=== PATIENT | male | born 1965 | race Caucasian/White ===

== ENCOUNTER 2018-03-25 10:45 | Inpatient (IN) ==
[2018-03-25] MEDS ORDERED: niCARdipine Inj 25 MG in Sodium Chlor 0.9% Inj 240 ML IV.CONT PRN (10:55)
--- NOTE | 2018-03-25 10:55 | ED ---
HPI General Chief Complaint: Neuro Symptoms/Deficit Stated Complaint: neuro symptoms Time Seen by Provider: 03/25/18 11:04 Source: EMS Mode of arrival: EMS Limitations: no limitations History of Present Illness Onset (ago): minute(s) (50) Last Observed Normal: 10:00 Location: Reports speech, dysarthria and left arm History of same: No Severity: mild Quality: Reports weak Relieving factors: none Exacerbating factors: none Context: Reports sudden onset On Anticoagulants: No Associated symptoms: Reports denies other symptoms; Denies chest pain, fever/ chills, headaches, nausea/vomiting, seizures and shortness of breath Treatments Prior to Arrival: Reports none Related Data Home Medications Medication Instructions Recorded Confirmed insulin detemir U-100 [Levemir 20 unit SUBCUT QPM 03/25/18 03/25/18 U-100 Insulin] losartan 100 mg PO DAILY 03/25/18 03/25/18 metoclopramide HCl 10 mg PO Q6H 03/25/18 03/25/18 minoxidil 10 mg PO BID 03/25/18 03/25/18 naproxen sodium [Aleve] 440 mg PO BID 03/25/18 03/25/18 sertraline 100 mg PO DAILY 03/25/18 03/25/18 sevelamer carbonate [Renvela] 3,200 mg PO TID 03/25/18 03/25/18 Allergies Allergy/AdvReac Type Severity Reaction Status Date / Time diatrizoate meglumine AdvReac Mild NAUSEA/VOMI Verified 03/25/18 11:28 TING gadobenic acid AdvReac Mild NAUSEA/VOMI Verified 03/25/18 11:28 TING gadodiamide AdvReac Mild NAUSEA/VOMI Verified 03/25/18 11:28 TING iodixanol AdvReac Mild NAUSEA/VOMI Verified 03/25/18 11:28 TING iohexol AdvReac Mild NAUSEA/VOMI Verified 03/25/18 11:28 TING Review of Systems ROS: all other systems reviewed are negative [facility] Medical History Medical History Melanoma (Chronic) Depression (Chronic) Diabetes (Chronic) ESRD (end stage renal disease) (Chronic) Hypertension (Chronic) Surgical History Surgical History H/O foot surgery (Acute) Hx of neck surgery (Acute) Hx of tonsillectomy (Acute) Social History Social History Substance History: No History of Abuse Second Hand Smoke Exposure: No Smoking Status: Never smoker How Often Do You Have a Drink Containing Alcohol: Never Recent Travel in [facility] within the Last 8 Weeks: No Recent Out of Country Travel within the Last 8 Weeks: No Exam Const General: cooperative, healthy appearing and comfortable Orientation: alert, awake and oriented x3 HENMT Head: normal to inspection, normocephalic and atraumatic Eyes Alignment and Position: alignment normal Conjunctivae: conjunctivae normal Sclera: sclerae normal EOM: EOM intact bilaterally Neck Neck: normal visual inspection, no lymphadenopathy and no meningeal signs Chest Chest: normal inspection of the chest Resp Effort & Inspection: normal respiratory effort and able to speak in complete sentences Auscultation: clear to auscultation bilaterally Cardio Rate: regular rate Rhythm: regular rhythm Back/Spine/Pelvis Cervical Spine: cervical ROM normal Thoracic/Lumbar Spine: thoraco-lumbar ROM normal Skin General: no rashes or lesions noted, turgor normal and dry skin Neuro General: alert, awake, oriented x3 and moves all extremities Cranial Nerves: PERRL, EOM intact bilaterally, no nystagmus, facial strength normal and other (tongue deviates very slightly to the left) Cognition: abnormal cognition (seems just a little confused) Speech: speech normal Motor: movement abnormality noted myoclonus (jerks about every 30 seconds) Extrem General: normal to inspection and full ROM Psych Appearance: grossly normal Mental Status: mental status grossly normal Speech and Movement: speech and movement normal Mood: congruent mood Affect: normal affect Attitude: cooperative Thought Process: normal Thought Content: normal Judgment: judgment good Course Consultations Consultation #1: Dr. Salas, neurology Time: 10:55 Consultation #2: Dr. Rosenbaum, radiology Time: 11:00 Consultation #3: Dr. Fisher, nephrology Time: 12:15 Additional Consultation(s): Dr. Fung, nephrology at 12:19 Dr. Walker, hospitalist at 12:25 Initial Documented Vital Signs Temperature 97.5 F L 03/25/18 11:00 Pulse Rate 90 03/25/18 11:00 Respiratory Rate 18 03/25/18 11:00 Blood Pressure 237/119 H 03/25/18 11:00 Pulse Oximetry 94 L 03/25/18 11:00 Last Documented Vital Signs Temperature 97.5 F L 03/25/18 11:00 Pulse Rate 67 03/25/18 11:56 Respiratory Rate 18 03/25/18 11:56 Blood Pressure 229/77 H 03/25/18 11:56 Pulse Oximetry 97 03/25/18 11:56 Critical Care Time Critical Care Time: Yes Total Critical Care Time: 60 Attestation: Time to perform other separately billable procedures was not included in the critical care time. My time did not include minutes spent treating any other patients simultaneously or on activities that did not directly contribute to the patient's treatment. The services I provided to this patient were to treat and/or prevent clinically significant deterioration due to acute neurological event I provided critical care services requiring my management, as noted below: Chart data review, documentation time, medication orders and management, vital sign assessments/reviewing monitor data, ordering and reviewing lab tests, ordering and interpreting/reviewing x-rays and diagnostic studies, care of the patient and discussion of the patient with the admitting physicians NIH Stroke Scale NIHSS Time Completed NIHSS Time Completed: 10:54 NIH Stroke Scale Level of Consciousness: 0-Alert Orientation Questions: 0-Answers both correct Responds to Commands: 0-Both tasks correct Gaze Eye Movement: 0-Horizontal movement WNL Visual Haji: 0-No visual field defect Facial Movement: 1-Minor facial palsy Motor Functions Arm LEFT: 1-Drift before 10 seconds Motor Functions Arm RIGHT: 0-No drift Motor Functions Leg LEFT: 0-No drift Motor Functions Leg RIGHT: 0-No drift Limb Ataxia: 0-No ataxia Sensory Loss: 0-No sensory loss Best Language: 1-Mild aphasia Articulation: 1-Mild dysarthia Extinction or Inattention Sensory: 0-Absent Total: 4 Medical Decision Making MDM Narrative Medical decision making narrative: This patient presents to us by [facility] following the acute onset of neurological symptoms. Onset was 10 AM. He was initially reported to have right-sided facial droop and slurred speech. He was also noted to have intermittent jerking. No previous similar history. Pertinent medical history is end-stage renal disease on dialysis. He is due to dialyze today. He also has hypertension and diabetes. To my exam, his facial strength is normal. His tongue does deviate very slightly to the left. He has very mildly decreased muscle strength in the left upper extremity. Dr. Salas was consulted emergently. He has examined the patient via telemedicine. The patient's symptoms seem to be improving. Dr. Salas does not recommend TPA. He does recommend aspirin which has been ordered. He also recommends permissive hypertension but would like to see the patient's diastolic blood pressure around 100. He recommends the use of IV Lopressor for blood pressure control. This has been ordered. Finally, he recommends the following studies: MRI/MRA of the brain, carotid ultrasound, echo, lipid panel. All of the studies have also been ordered. After seeing his potassium, I have ordered insulin/D50, sodium bicarb, calcium gluconate and Kayexalate. I have asked the charge nurse to contact his foot cutter, Dr. Fisher. Arrangements will be made by nephrology for dialysis. The patient is being admitted to [facility]. Medical Screen Exam Complete: Yes Emergency Medical Condition: Yes Differential Diagnosis Differential Diagnosis: Differential diagnosis includes but is not limited to TIA, CVA, brain tumor, migraine, anxiety Lab Data Lab results reviewed: Yes I reviewed the patient's lab results. Result diagrams: 03/25/18 11:15 03/25/18 11:15 Lab Results 03/25/18 03/25/18 03/25/18 Range/Units 11:15 11:15 11:15 CBC w Diff Auto diff final WBC 11.1 H (4.0-11.0) th/mm3 RBC 4.26 L (4.50-5.90) mil/mm3 Hgb 13.0 (13.0-17.0) gm/dL Hct 40.0 (39.0-51.0) % MCV 93.9 (80.0-100.0) fL MCH 30.5 (27.0-34.0) pg MCHC 32.5 (32.0-36.0) % RDW 13.6 (11.6-17.2) % Plt Count 238 (150-450) th/mm3 MPV 8.5 (7.0-11.0) fL Neut % (Auto) 70.1 H (16.0-70.0) % Lymph % (Auto) 13.8 (9.0-44.0) % Leslie % (Auto) 8.8 H (0.0-8.0) % Eos % (Auto) 6.3 H (0.0-4.0) % Baso % (Auto) 1.0 (0.0-2.0) % Neut # (Auto) 7.8 H (1.8-7.7) th/mm3 Lymph # (Auto) 1.5 (1.0-4.8) th/mm3 Leslie # (Auto) 1.0 H (0.0-0.9) th/mm3 Eos # (Auto) 0.7 H (0.0-0.4) th/mm3 Baso # (Auto) 0.1 (0.0-0.2) th/mm3 WBC Differential . Differential Comment . PT 11.4 (9.8-11.6) sec INR 1.1 Ratio APTT 31.8 H (23.4-31.7) sec Sodium 137 (136-145) meq/L Potassium 6.3 H (3.5-5.1) meq/L Chloride 99 (98-107) meq/L Carbon Dioxide 24.2 (21.0-32.0) meq/L Anion Gap 14 (5-15) meq/L BUN 83 H (7-18) mg/dL Creatinine 7.30 H (0.60-1.30) mg/dL Estimated GFR 8 L (>89) mL/min Random Glucose 109 H (74-106) mg/dL Calcium 9.2 (8.5-10.1) mg/dL Total Creatine Kinase 151 (39-308) U/L CK-MB (CK-2) 5.2 H (0.5-3.6) ng/mL Troponin I 0.15 H (0.02-0.05) ng/mL Imaging Data Radiologist's impression: Chest X-Ray 03/25/18 10:51 CONCLUSION: No acute pulmonary infiltrates. Head CT 03/25/18 10:51 CONCLUSION: 1. No acute intracranial hemorrhage. 2. Bilateral small old appearing lacunar infarcts in the basal ganglia regions. Report was called by [Dr. Rosenbaum to Dr. Vanegas at 11:01 AM. ] ECG Data EKG Prior to Arrival: No Attestation: I personally reviewed and interpreted this ECG as follows: (EKG shows a sinus rhythm. Rate 85. No acute STT wave changes.) Discharge Plan Discharge Disposition Patient Disposition: ED Admit(ED Internal Use Only) Discharge Details Diagnosis: Transient cerebral ischemia, Acute hyperkalemia, Chronic kidney disease with end stage renal failure on dialysis Physicians Team ED Provider: Kaley Vanegas Primary Care Provider: lamberto Fisher Christophe C Rxs /Orders / Referrals /Forms Prescriptions: No Action sertraline 100 mg Tablet 100 mg PO DAILY RF: 0 minoxidil 10 mg Tablet 10 mg PO BID RF: 0 losartan 100 mg Tablet 100 mg PO DAILY RF: 0 metoclopramide HCl 10 mg Tablet 10 mg PO Q6H RF: 0 insulin detemir U-100 [Levemir U-100 Insulin] 100 unit/mL Solution 20 unit SUBCUT QPM RF: 0 sevelamer carbonate [Renvela] 800 mg Tablet 3,200 mg PO TID RF: 0 naproxen sodium [Aleve] 220 mg Capsule 440 mg PO BID RF: 0 Status ED Status: With Doctor
--- NOTE | 2018-03-25 11:06 | CT ---
EXAM DATE: 03/25/2018 11:00 AM EST AGE/SEX: 52 years / Male INDICATIONS: Stroke alert. Right facial drooping and slurred speech. Left deviated tongue. CLINICAL DATA: This is the patient's initial encounter. Patient reports that signs and symptoms have been present for 1 day and indicates a pain score of Nonresponsive. MEDICAL/SURGICAL HISTORY: Non-responsive. . Left jaw surgery. RADIATION DOSE: 60.75 CTDI (mGy) COMPARISON: No prior exams available for comparison. TECHNIQUE: CT of the head without contrast. Using automated exposure control and adjustment of the mA and/or kV according to patient size, radiation dose was kept as low as reasonably achievable to ob tain optimal diagnostic quality images. DICOM format image data is available electronically for revi ew and comparison. FINDINGS: Cerebrum: The ventricles are normal for age. No evidence of midline shift, mass lesion, hemorrhage or acute infarction. No extraaxial fluid collections are seen. Old small bilateral lacunar infarcts in the basal ganglia regions. Posterior Fossa: The cerebellum and brainstem are intact. The 4th ventricle is midline. The cerebe llopontine angle is unremarkable. Extracranial: The visualized portion of the orbits is intact. Skull: The calvaria is intact. No evidence of skull fracture. CONCLUSION: 1. No acute intracranial hemorrhage. 2. Bilateral small old appearing lacunar infarcts in the basal ganglia regions. Report was called by [Dr. Rosenbaum to Dr. Vanegas at 11:01 AM. ] Electronically signed by: Erich Rosenbaum MD Board Certified Radiologist 03/25/2018 11:04 AM EST
[2018-03-25] MEDS ORDERED: Metoprolol Inj 5 MG/5 ML Vial IV.PUSH PRN (11:12)
--- NOTE | 2018-03-25 11:32 | XR ---
EXAM DATE: 03/25/2018 11:29 AM EST AGE/SEX: 52 years / Male INDICATIONS: Stroke Alert CLINICAL DATA: This is the patient's initial encounter. Patient reports that signs and symptoms have been present for 1 day and indicates a pain score of Nonresponsive. MEDICAL/SURGICAL HISTORY: Non-responsive. Non-responsive. COMPARISON: No prior exams available for comparison. FINDINGS: A single AP view of the chest demonstrates the lungs to be symmetrically aerated without evidence of mass, infiltrate or effusion. The cardiomediastinal contours are unremarkable. Osseous structures a re intact. CONCLUSION: No acute pulmonary infiltrates. Electronically signed by: Erich Rosenbaum MD Board Certified Radiologist 03/25/2018 11:30 AM EST
[2018-03-25 11:33] LABS: Chloride 99 meq/L (98-107); Potassium 6.3 meq/L (3.5-5.1); Sodium 137 meq/L (136-145)
[2018-03-25] MEDS: Sod Chloride 0.9% Inj 1,000 ML IV.CONT SCH (11:35)
[2018-03-25 11:36] LABS: Baso # (Auto) 0.1 th/mm3 (0.0-0.2); Calcium 9.2 mg/dL (8.5-10.1); Eos # (Auto) 0.7 th/mm3 (0.0-0.4); Eos % (Auto) 6.3 % (0.0-4.0); Lymph # (Auto) 1.5 th/mm3 (1.0-4.8); Lymph % (Auto) 13.8 % (9.0-44.0); Mean Corpuscular HGB Conc 32.5 % (32.0-36.0); Mean Corpuscular Hemoglobin 30.5 pg (27.0-34.0); Mean Corpuscular Volume 93.9 fL (80.0-100.0); Mean Platelet Volume 8.5 fL (7.0-11.0); Mono % (Auto) 8.8 % (0.0-8.0); Neut # (Auto) 7.8 th/mm3 (1.8-7.7); Neut % (Auto) 70.1 % (16.0-70.0); Platelet Count 238 th/mm3 (150-450); Red Blood Count 4.26 mil/mm3 (4.50-5.90); Red Cell Distribution Width 13.6 % (11.6-17.2); White Blood Count 11.1 th/mm3 (4.0-11.0)
[2018-03-25 11:37] LABS: Anion Gap 14 meq/L (5-15); Blood Urea Nitrogen 83 mg/dL (7-18); Carbon Dioxide 24.2 meq/L (21.0-32.0); Glucose,Random 109 mg/dL (74-106)
[2018-03-25 11:39] LABS: Activated Partial Thrombo Time 31.8 sec (23.4-31.7); INR 1.1 Ratio; Prothrombin Time 11.4 sec (9.8-11.6)
[2018-03-25 11:40] LABS: Glomerular Filtration Rate 8 mL/min (>89)
[2018-03-25 11:43] LABS: Creatine Kinase 151 U/L (39-308)
[2018-03-25 11:44] LABS: Troponin I 0.15 ng/mL (0.02-0.05)
[2018-03-25 11:55] LABS: Creatine Kinase MB 5.2 ng/mL (0.5-3.6)
--- NOTE | 2018-03-25 11:59 | MB ---
cc: Emerson Salas MD, PhD DATE: 03/25/2018 REASON FOR CONSULTATION: Stroke alert. HISTORY OF PRESENT ILLNESS: Mr. Patel is a very pleasant 52-year-old man with end-stage renal disease on dialysis, who was in his usual state of health until 10 a.m. this morning when he suddenly developed slurred speech and right facial droop. He was brought to the ED at [facility] as a stroke alert. I discussed his case with Dr. Vanegas of the ER department. On her evaluation, his facial droop had resolved; however, he still had slurred speech and was noted to have a left tongue deviation with mild left upper extremity weakness. However, at the time of my evaluation via the Telestroke system, his symptoms had virtually resolved. He was noted to have intermittent jerking of his upper and lower extremities as well. NEUROLOGICAL EXAMINATION: VITAL SIGNS: Blood pressure initially 231/119, pulse is 80. HIGHER CORTICAL FUNCTION: The patient is alert, arouses easily. Speech at this time is not dysarthric. It is fluent, back to his normal self. He follows commands well. There is no neglect. On cranial nerve examination, there is no longer a facial droop. Cranial nerves are intact. There is very subtle left tongue deviation, but this is very minimal. On motor examination, he is able to lift both upper extremities for greater than 20 seconds and both lower extremities for greater than 20 seconds. He has normal strength in both arms and both legs. There is no drift. He has a normal sensory exam. There is no limb ataxia. There is no sign of aphasia and no dysarthria. No extinction. The NIH stroke scale at the time of my evaluation is 0. DIAGNOSTIC DATA: CT of the brain without contrast by report is with no acute change present. Serum glucose is within normal limits. IMPRESSION AND PLAN: Suspect that this may have been a posterior circulation, i.e., brainstem, transient ischemia attack given the exam findings in the ER. However, his symptoms have completely resolved at the present time. Therefore, he is not a candidate for IV TPA. We cannot give him contrast for a CT angiogram due to an ALLERGY TO THE CONTRAST DYE as well as his renal failure with resolution of symptoms. I would recommend starting aspirin 325 mg daily. Allow permissive hypertension and treat blood pressure if it got over 210/100. I will order an MRI of the brain without contrast, MRA of the brain without contrast, carotid ultrasound, echocardiogram, and lipid panel. The patient will be evaluated for further evaluation and observation. Thank you for asking me to see this patient in consultation. Emerson Salas MD, PhD CARRIE/kota , 11:37 AM , 11:46 AM
[2018-03-25] MEDS ORDERED: Sodium Polystyrene Sulfonate/Sorbitol Liq 15 GM/60 ML UDC PO ONE (12:04)
[2018-03-25] MEDS ORDERED: Calcium Gluconate Inj 1 GM in Sodium Chlor 0.9% Inj 100 ML IV.SIG ONE (12:04)
--- NOTE | 2018-03-25 12:47 | US ---
EXAM DATE: 03/25/2018 12:41 PM EST AGE/SEX: 52 years / Male INDICATIONS: Right-sided facial droop and slurred speech. CLINICAL DATA: This is the patient's initial encounter. Patient reports that signs and symptoms have been present for 1 day and indicates a pain score of 0/10. MEDICAL/SURGICAL HISTORY: Hypertension. Diabetes. ESRD. Melanoma. Dialysis. . Left neck Melano ma and lymph node removal. COMPARISON: No prior exams available for comparison. VELOCITY PARAMETERS: ICA/CCA Ratio: Right 1.25 , Left 1.46 ICA: Right 77 cm/sec, Left 166 cm/sec CCA: Right 62 cm/sec, Left 114 cm/sec ECA: Right 63 cm/sec, Left 71 cm/sec Vertebral: Right 66 cm/sec antegrade, Left 68 cm/sec antegrade FINDINGS: Right Carotid: Moderate arteriosclerotic plaque is visualized.The waveforms are within normal limits . Left Carotid: There is elevation of the peak systolic velocity of the left ICA suggesting 50-69% kvng nosis although the ICA/CCA ratio is suggestive of less than 50% stenosis. CTA of the carotids may be helpful for further evaluation of these discordant findings. Moderate arteriosclerotic plaque is visu alized. The waveforms are within normal limits. Other: None. CONCLUSION: 1. Elevation of the peak systolic velocity of the left ICA suggesting 50-69% stenosis although the I CA/CCA ratio is suggestive of less than 50% stenosis. CTA of the carotids may be helpful for further evaluation of these discordant findings. 2. No significant stenosis involving the right internal carotid artery. Electronically signed by: Herman Graf MD Board Certified Radiologist 03/25/2018 12:45 PM EST
[2018-03-25] MEDS ORDERED: Labetalol HCl Inj 100 MG/20 ML Vial IV.PUSH PRN (13:13)
[2018-03-25] MEDS ORDERED: Dextrose 50% in Water 50 ML Vial IV.PUSH PRN (13:13)
--- NOTE | 2018-03-25 13:16 | MR ---
EXAM DATE: 03/25/2018 1:12 PM EST AGE/SEX: 52 years / Male INDICATIONS: CVA. CLINICAL DATA: This is the patient's initial encounter. Patient reports that signs and symptoms have been present for 1 day and indicates a pain score of 0/10. MEDICAL/SURGICAL HISTORY: Hypertension. Diabetes mellitus type II. . Melanoma removed and foot surgery. COMPARISON: [facility], MR HEAD W/O CONTRAST, 03/25/2018. [facility], CT HEAD W/O CONTRAST, 03/25/2018. . TECHNIQUE: 3D [id number] MRA was performed. Source images, multiplanar STS MIP, and 3D volum e MIP reconstructions were reviewed. FINDINGS: There is excellent visualization of the major intracranial arteries out to the second-order branch ve ssels. There is no evidence for aneurysm, vessel truncation or stenosis, and no evidence for vascula r malformation. CONCLUSION: 1. Negative MRA Cow ([place]) non contrast. Electronically signed by: Herman Graf MD Board Certified Radiologist 03/25/2018 1:15 PM EST
--- NOTE | 2018-03-25 13:17 | MR ---
EXAM DATE: 03/25/2018 1:12 PM EST AGE/SEX: 52 years / Male INDICATIONS: CVA. CLINICAL DATA: This is the patient's initial encounter. Patient reports that signs and symptoms have been present for 1 day and indicates a pain score of 0/10. MEDICAL/SURGICAL HISTORY: Diabetes mellitus type II. Hypertension. Renal disease, end stage. . Melanoma removed and foot surgery. COMPARISON: [facility], CT HEAD W/O CONTRAST, 03/25/2018. . TECHNIQUE: Multiplanar, multisequence examination of the brain was performed without contrast. FINDINGS: Cerebrum: The ventricles are normal for age. No evidence of midline shift, mass lesion, hemorrhage or acute infarction. No extraaxial fluid collections are seen. The pituitary gland and suprasellar cistern are normal in configuration. There are old small bilateral lacunar infarcts in the basal gang paul regions. White Matter: No significant signal abnormalities are seen in the white matter. Posterior Fossa: The cerebellum and brainstem are intact. The 4th ventricle is midline. The cerebel lopontine angle is unremarkable. The cerebellar tonsils are normal in position. Diffusion Imaging: No focal areas of restricted diffusion are seen. No evidence of acute infarction . Extracranial: The visualized portions of the orbits and paranasal sinuses are unremarkable. Chronic mastoiditis on the left side. CONCLUSION: 1. No acute cerebral infarction. 2. Bilateral old small lacunar infarcts. 3. Chronic left mastoiditis. Electronically signed by: Erich Rosenbaum MD Board Certified Radiologist 03/25/2018 1:16 PM EST
--- NOTE | 2018-03-25 13:23 | P.HPIM ---
History of Present Illness Primary Care Physician: Hardik Bazan Mai, m.d., MD Chief Complaint: slurring of speech and R facial droop History of Present Illness: This is a 52-year-old male with history of end- stage renal disease and he diabetes mellitus, hypertension presenting to the hospital around 10 AM for slurring of speech and right-sided facial droop. Upon ED evaluation, stroke alert was called, neurology saw the patient via telemedicine. Slurring of speech is still present but a little bit better, there is also left tongue deviation. tPA was not given. Presently, patient is feeling better, per patient's mother, his speech is probably back to normal or close if not normal. He has a baseline left-sided facial droop from a previous neck surgery. Patient denies any chest pain or shortness of breath. He has generalized weakness but no change or worsening. Is no history of stroke or kidney problems in the family. There is prominent cardiac history in the family. Patient is non-smoker Inpatient Certification Inpatient Certification: I certify that the inpatient services were ordered in accordance with Medicare regulations governing the order. This includes certification that hospital inpatient services are reasonable and necessary and in the case of services not specified as inpatient-only under 42 CFR 419.22(n), that they are appropriately provided as inpatient services in accordance to with the 2-midnight benchmark under 43 CFR 412.3(e) Estimated Total Length of Stay (Days): 2 Plans for Post Hospital Care: Home health Review of Systems Review of Systems: all other systems reviewed are negative [facility] Medical History Medical History Melanoma (Chronic) Depression (Chronic) Diabetes (Chronic) ESRD (end stage renal disease) (Chronic) Hypertension (Chronic) Surgical History Surgical History H/O foot surgery (Acute) Hx of neck surgery (Acute) Hx of tonsillectomy (Acute) Social History Social History Substance History: No History of Abuse Second Hand Smoke Exposure: No Smoking Status: Never smoker How Often Do You Have a Drink Containing Alcohol: Never Recent Travel in [facility] [[email or web address]] within the Last 8 Weeks: No Recent Out of Country Travel within the Last 8 Weeks: No Immunization History Tetanus Immunization: <5 Years Medications and Allergies Allergies Allergy/AdvReac Type Severity Reaction Status Date / Time diatrizoate meglumine AdvReac Mild NAUSEA/VOMI Verified 03/25/18 11:28 TING gadobenic acid AdvReac Mild NAUSEA/VOMI Verified 03/25/18 11:28 TING gadodiamide AdvReac Mild NAUSEA/VOMI Verified 03/25/18 11:28 TING iodixanol AdvReac Mild NAUSEA/VOMI Verified 03/25/18 11:28 TING iohexol AdvReac Mild NAUSEA/VOMI Verified 03/25/18 11:28 TING Home Medications Medication Instructions Recorded Confirmed Type insulin detemir U-100 [Levemir 20 unit SUBCUT QPM 03/25/18 03/25/18 History U-100 Insulin] losartan 100 mg PO DAILY 03/25/18 03/25/18 History metoclopramide HCl 10 mg PO Q6H 03/25/18 03/25/18 History minoxidil 10 mg PO BID 03/25/18 03/25/18 History naproxen sodium [Aleve] 440 mg PO BID 03/25/18 03/25/18 History sertraline 100 mg PO DAILY 03/25/18 03/25/18 History sevelamer carbonate [Renvela] 3,200 mg PO TID 03/25/18 03/25/18 History Active Medications: Active Medications Sodium Chloride (Ns Inj) 1,000 mls @ 70 mls/hr IV.CONT .[id number] [facility] Last Admin: 03/25/18 11:35 Dose: 70 mls/hr Metoprolol Tartrate (Lopressor Inj) 5 mg IV.PUSH Q5M PRN PRN Reason: BLOOD PRESSURE MANAGEMENT Last Admin: 03/25/18 11:36 Dose: 5 mg Physical Exam Vital signs: Last Vital Signs Temp 97.5 F L 03/25/18 11:00 Pulse 67 03/25/18 11:56 Resp 18 03/25/18 11:56 BP 229/77 H 03/25/18 11:56 Pulse Ox 97 03/25/18 11:56 Intake & Output 03/23/18 03/24/18 03/25/18 03/26/18 06:59 06:59 06:59 06:59 Weight 98.5 kg Narrative: GENERAL: Not in acute distress, well-nourished. EYES: PERRL, full EOMs, no jaundice, nonicteric, pink conjunctivae without injection, moist mucosa ENT: Nose without bleeding, purulent drainage. NECK: Trachea midline, no mass CARDIOVASCULAR: Regular rate and rhythm without murmurs, gallops, or rubs. RESPIRATORY: Clear to auscultation with normal respiratory effort. Breath sounds equal bilaterally. GASTROINTESTINAL: Abdomen soft, normal bowel sounds, non-tender, nondistended.. No guarding. TROY and exam deferred. MUSCULOSKELETAL: Extremities without clubbing, cyanosis, or edema. Distal pulses intact, 2+ bilaterally. INTEGUMENTARY: Warm and dry, no rash of generalized distribution. NEUROLOGICAL: Alert, awake and oriented x3. Remote, recent, immediate memory intact. No neglect. Concentration, judgment and higher function WNL. Pupils equal round reactive to light and accommodation, there is mild facial asymmetry , left side drooping but this is baseline according to patient and patient's mother, slight left tongue deviation, shoulder shrug strong and symmetric, gross hearing intact. Moves all 4 extremities, muscle strength testing 5 over 5 all 4 extremities but with generalized weakness. Pronator drift negative. Babinski downgoing, clonus deferred. Negative meningeal signs. Gait testing deferred Results Labs CBC & Chem 7: 03/25/18 11:15 03/25/18 11:15 Imaging Impressions Chest X-Ray 03/25/18 10:51 CONCLUSION: No acute pulmonary infiltrates. Head CT 03/25/18 10:51 CONCLUSION: 1. No acute intracranial hemorrhage. 2. Bilateral small old appearing lacunar infarcts in the basal ganglia regions. Report was called by [Dr. Rosenbaum to Dr. Vanegas at 11:01 AM. ] Carotid Doppler Study 03/25/18 11:12 CONCLUSION: 1. Elevation of the peak systolic velocity of the left ICA suggesting 50-69% stenosis although the ICA/CCA ratio is suggestive of less than 50% stenosis. CTA of the carotids may be helpful for further evaluation of these discordant findings. 2. No significant stenosis involving the right internal carotid artery. Head MRA 03/25/18 11:12 CONCLUSION: 1. Negative MRA [place] ([place]) non contrast. Caprini VTE Risk Assessment Caprini VTE Risk Assessment: Moderate/High Risk (score >= 2) Caprini Risk Assessment Model: Point Value = 1 Point Value = 2 Point Value = 3 Point Value = 5 Age 41-60 Minor surgery BMI > 25 kg/m2 Swollen legs Varicose veins or History of unexplained or recurrent spontaneous Oral contraceptives or hormone replacement Sepsis (< 1 month) Serious lung disease, including pneumonia (< 1 month) Abnormal pulmonary function Acute myocardial infarction Congestive heart failure (< 1 month) History of inflammatory bowel disease Medical patient at bed rest Age 61-74 Arthroscopic surgery Major open surgery (> 45 min) Laparoscopic surgery (> 45 min) Malignancy Confined to bed (> 72 hours) Immobilizing plaster cast Central venous access Age >= 75 History of VTE Family history of VTE Factor V Leiden Prothrombin [id number] Lupus anticoagulant Anticardiolipin antibodies Elevated serum homocysteine Heparin-induced thrombocytopenia Other congenital or acquired thrombophilia Stroke (< 1 month) Elective arthroplasty Hip, pelvis, or leg fracture Acute spinal cord injury (< 1 month) Prophylaxis Regimen: Total Risk Factor Score Risk Level Prophylaxis Regimen 0-1 Low Early ambulation 2 Moderate Order ONE of the following: *Sequential Compression Device (SCD) *Heparin 5000 units SQ BID 3-4 Higher Order ONE of the following medications: *Heparin 5000 units SQ TID *Enoxaparin/Lovenox 40 mg SQ daily (WT < 150 kg, CrCl > 30 mL/min) *Enoxaparin/Lovenox 30 mg SQ daily (WT < 150 kg, CrCl > 10-29 mL/min) *Enoxaparin/Lovenox 30 mg SQ BID (WT < 150 kg, CrCl > 30 mL/min) AND/OR *Sequential Compression Device (SCD) 5 or more Highest Order ONE of the following medications: *Heparin 5000 units SQ TID (Preferred with Epidurals) *Enoxaparin/Lovenox 40 mg SQ daily (WT < 150 kg, CrCl > 30 mL/min) *Enoxaparin/Lovenox 30 mg SQ daily (WT < 150 kg, CrCl > 10-29 mL/min) *Enoxaparin/Lovenox 30 mg SQ BID (WT < 150 kg, CrCl > 30 mL/min) AND *Sequential Compression Device (SCD) Assessment and Plan Plan This is a 52-year-old male with history of hypertension, end-stage renal disease on hemodialysis presenting with slurring of speech and right facial droop TIA versus CVA-symptoms are resolving, speech is fluent, mild tongue deviation to the left, no facial droop, no focal weakness. Neurology has seen the patient , likely posterior dislocation stroke versus TIA. CT scan of the brain unremarkable. Check MRI, MRA of the brain, carotid ultrasound, echocardiogram. No need for tPA. Aspirin 325 mg daily, permissive hypertension to 210/100. Check lipid panel, hemoglobin A1c, telemetry, Holter monitor. End-stage renal disease on hemodialysis-consult nephrology, recheck BMP tomorrow Hyperkalemia-check EKG, potassium is 6.3, status post D50 with insulin, Kayexalate, will give calcium gluconate. Nephrology consult for HD Diabetes mellitus-resume home dose of Levemir 20 units at night, sliding scale insulin, Accu-Cheks Hypertension-continue losartan, minoxidil, metoprolol as needed. Troponin elevation-likely secondary to end-stage renal disease. Patient does not have any chest pain, serial EKG and troponin to make sure they remain normal /trend is flat DVT prophylaxis: SCDs
[2018-03-25 13:43] LABS: Chol/HDL Ratio 1.91 Ratio; HDL Cholesterol 64.6 mg/dL (40.0-60.0)
[2018-03-25] MEDS ORDERED: Gelatin 12 MM/7 MM Topical Foam TOPICAL PRN (15:59)
[2018-03-25] MEDS ORDERED: Sod Chloride 0.9% Inj 1,000 ML OTHER PRN ×2 (15:59)
[2018-03-25] MEDS ORDERED: Heparin 10,000 UNITS/10 ML Vial (for IV use) OTHER PRN ×2 (15:59)
[2018-03-25] MEDS ORDERED: Albumin Human 25% Inj 100 ML IV.SIG PRN (15:59)
[2018-03-25] MEDS ORDERED: Acetaminophen 325 MG Tablet PO PRN (15:59)
[2018-03-25] MEDS ORDERED: Sod Chloride 0.9% Inj 1,000 ML IV.CONT PRN (15:59)
[2018-03-25] MEDS ORDERED: FOSPHENYTOIN IV.SIG ONE (16:00)
[2018-03-25] MEDS ORDERED: SODIUM CHLOR IV.SIG ONE (16:00)
--- NOTE | 2018-03-25 16:24 | MB ---
cc: Miguel Fung MD DATE: 03/25/2018 REASON FOR CONSULTATION: End-stage renal disease, on hemodialysis, with hyperkalemia for management. HISTORY OF PRESENT ILLNESS: This is a 52-year-old male with a past medical history of hypertension, history of depression, diabetes mellitus, end-stage renal disease on hemodialysis 3 times per week for almost 2-1/2 years who was brought to the hospital because of slurred speech and right facial droop. I was called to see the patient for the management of dialysis. He has been following with Dr. Fisher and getting the dialysis Sunday, Sunday and Sunday. The patient was supposed to go for dialysis today, but he was brought to the emergency department. He had a stroke alert called initially and seen by Neurology via telemedicine. When I saw the patient, he was getting dialysis and also he was getting EEG. The patient has some improvement in the slurred speech and facial droop. His blood pressure was on the higher side. When I saw him, systolic was around 200. The patient denies any headache or dizziness. He denies any shortness of breath, no chest pain, no palpitation. PAST MEDICAL HISTORY: Hypertension, diabetes mellitus, history of depression, end-stage renal disease on hemodialysis 3 times per week. PAST SURGICAL HISTORY: History of AV fistula surgery, neck surgery, tonsillectomy, foot surgery. REVIEW OF SYSTEMS: The patient denies any headache, dizziness or blurring of vision. No shortness of breath. He has slurred speech, but according to him, it is better. The patient has some facial droop on the left side from his previous neck surgery. He denies any shortness of breath, no chest pain. No palpitation. No nausea or vomiting. SOCIAL HISTORY: The patient lives with his mother. There is no history of smoking or alcoholism. FAMILY HISTORY: Noncontributory. ALLERGIES: HE IS ALLERGIC TO IOHEXOL, GADOBENIC ACID, DIATRIZOATE. MEDICATIONS: Currently, he is on following medications: 1. Aspirin 325 mg once a day. 2. Fosphenytoin 750 mg infusion. 3. Fosphenytoin 100 mg every 8 hours. 4. Glucagon as needed. 5. Insulin aspart sliding scale. 6. Levemir 20 units subcutaneous in the evening. 7. Labetalol 10 mg every 2 hours. 8. Lorazepam 1 mg every 4 hours. 9. Losartan 100 mg daily. 10. Reglan 10 mg every 6 hours. 11. Metoprolol as needed. 12. Minoxidil 10 mg b.i.d. 11. Naproxen 500 mg b.i.d. 12. Pravachol 40 mg at bedtime. 13. Zoloft 100 mg daily. 14. Renvela 3.2 grams t.i.d. PHYSICAL EXAMINATION: GENERAL: The patient is alert, oriented, not in acute distress. VITAL SIGNS: His last blood pressure when I saw him was 200/90, temperature is 97.5. HEENT: Pupils are mid constricted. Nonicteric sclerae. Conjunctivae normal. NECK: Supple. JVD is not elevated. LUNGS: The patient has bilateral decreased air entry with basal rales or scant scattered wheezing. HEART: S1, S2. Regular rate and rhythm. ABDOMEN: Soft and lax. There is no tenderness. Bowel sounds positive. EXTREMITIES: No pedal edema. LABORATORY DATA: WBC count is 11.1, hemoglobin 13 with platelet count of 238, neutrophils 70.1%, eosinophils 6.3%. INR is 1.1. Sodium 137, potassium 6.3, chloride 99, bicarbonate 24.2, BUN 83, creatinine 7.3. Troponin I 0.15. Cholesterol 124, triglycerides 85. IMAGING STUDIES: The patient had MRI of the head done, which shows no acute cerebral infarct, bilateral old small lacunar infarct, chronic left mastoiditis. The patient also has MRA of the head done, which shows negative noncontrast study. CT scan of the head was done, which shows no acute intracranial hemorrhage, bilateral small old-appearing lacunar infarcts in the basal ganglia region. Carotid Doppler was done, which shows elevation of peak systolic velocity of the left ICA, suggesting 50-69% stenosis, the ICA/CCA ratio is suggestive of less than 50% stenosis, no significant stenosis in the right internal carotid artery. Chest x-ray was done, which shows no acute pulmonary infiltrate. ASSESSMENT AND PLAN: 1. Rule out an acute cerebral ischemia or stroke. 2. Hypertension, uncontrolled. 3. Hyperkalemia. 4. End-stage renal disease, on hemodialysis 3 times per week. 5. Diabetes mellitus. The patient was seen by Neurology. He had workup done including the EEG has been done now. I saw him during dialysis. I asked the nurse to decrease the ultrafiltration. We will try to keep his blood pressure slightly on the higher side since he possibly has some cerebral ischemia. Neurology to follow for further plan. Her potassium was on the higher side, which should get better with dialysis. His calcium is normal. Continue the binder. We will check the phosphorus level. His hemoglobin is high, so we will not give him any binder. We will not give him any Epogen at present. Thank you for the consultation and I will follow the patient while he is in the hospital. MD BREANN Pool/dimitri , 03:58 PM , 04:10 PM
--- NOTE | 2018-03-25 16:39 | MG ---
cc: Emerson Salas MD, PhD DATE OF STUDY: 03/25/2018 TECHNIQUE: This is a 17-channel electroencephalogram. DESCRIPTION: The background rhythm shows generalized slow activity in the theta range initially, but then later there was an alpha rhythm present at about 8 Hz. There are episodic sharp waves in a generalized fashion associated with arm and leg jerking occurring throughout the tracing with a spike and wave type discharge. No other lateralizing features were identified. There is some muscle artifact present as well. Photic was done with a fairly well-developed driving response. INTERPRETATION: Abnormal study. A generalized [id number] activity is seen episodically consistent with probable generalized seizure, but no evidence of status. Emerson Salas MD, PhD CARRIE/dimitri , 04:18 PM , 04:24 PM
[2018-03-25] MEDS: Metoclopramide 10 MG Tablet PO SCH ×2 (18:36→19:49)
[2018-03-25] MEDS: Insulin NovoLOG Aspart Correctional Sugar Inj SQ SCH ×2 (18:37→21:03)
[2018-03-25] MEDS: Insulin Detemir Inj 1,000 UNIT/10 ML Vial SQ SCH (18:37)
[2018-03-25] MEDS: Naproxen 500 MG Tablet PO SCH (20:56)
[2018-03-25] MEDS: Minoxidil 10 MG Tablet PO SCH (20:57)
[2018-03-26] MEDS ORDERED: Fosphenytoin Sodium Inj 100 MGPE/2 ML Vial IV.SIG SCH
[2018-03-26] MEDS: Sod Chloride 0.9% Inj 1,000 ML IV.CONT SCH (01:54)
[2018-03-26] MEDS: Metoclopramide 10 MG Tablet PO SCH ×5 (01:55→23:55)
[2018-03-26] MEDS: Insulin NovoLOG Aspart Correctional Sugar Inj SQ SCH ×4 (07:54→21:17)
[2018-03-26] MEDS: Aspirin 325 MG Tablet PO SCH (08:09)
[2018-03-26] MEDS: Minoxidil 10 MG Tablet PO SCH ×2 (08:09→20:10)
[2018-03-26] MEDS: Naproxen 500 MG Tablet PO SCH ×2 (08:09→20:07)
[2018-03-26] MEDS: Sertraline 100 MG Tablet PO SCH (08:10)
[2018-03-26 08:34] LABS: Baso # (Auto) 0.1 th/mm3 (0.0-0.2); Baso % (Auto) 0.6 % (0.0-2.0); Eos # (Auto) 0.5 th/mm3 (0.0-0.4); Eos % (Auto) 5.3 % (0.0-4.0); Hematocrit 37.3 % (39.0-51.0); Hemoglobin 12.7 gm/dL (13.0-17.0); Lymph # (Auto) 1.5 th/mm3 (1.0-4.8); Mean Corpuscular Hemoglobin 31.4 pg (27.0-34.0); Mean Corpuscular Volume 92.3 fL (80.0-100.0); Mean Platelet Volume 7.9 fL (7.0-11.0); Mono # (Auto) 1.1 th/mm3 (0.0-0.9); Mono % (Auto) 11.6 % (0.0-8.0); Neut # (Auto) 6.5 th/mm3 (1.8-7.7); Neut % (Auto) 67.5 % (16.0-70.0); Platelet Count 197 th/mm3 (150-450); Red Blood Count 4.05 mil/mm3 (4.50-5.90); Red Cell Distribution Width 13.2 % (11.6-17.2); White Blood Count 9.7 th/mm3 (4.0-11.0)
[2018-03-26 08:54] LABS: Calcium 8.5 mg/dL (8.5-10.1); Carbon Dioxide 29.4 meq/L (21.0-32.0); Phosphorus 5.6 mg/dL (2.5-4.9); Potassium 4.8 meq/L (3.5-5.1)
[2018-03-26] MEDS ORDERED: Fosphenytoin Inj 100 MGPE in Sodium Chlor 0.9% Inj 50 ML IV.SIG SCH (10:00)
[2018-03-26 10:16] LABS: Phenytoin (Dilantin) 6.9 mcg/mL (10.0-20.0)
[2018-03-26] MEDS: Metoprolol Inj 5 MG/5 ML Vial IV.PUSH PRN ×2 (10:19→10:25)
--- NOTE | 2018-03-26 10:37 | P.CONNEU ---
History of Present Illness Service: Neurology Primary Care Provider: Hardik Bazan Mai, m.d., MD Chief Complaint: slurring of speech and R facial droop History of Present Illness: 52-year-old male admitted for possible stroke. Seen by tele-neurology. CT brain scan negative for any acute lesion or hemorrhage per noted be quite hypertensive now in the intensive care unit. Note of jerking movements witnessed by his mother which she has not had before. No known history of seizure activity. Been placed on Celebrex has not had any further episodes. He is back to his baseline self. Is a history of chronic paraparesis gets around in a wheelchair and also with left upper extremity weakness. Had extensive outpatient evaluation but has not followed up. MRI brain negative for acute stroke MRA [place] no significant vaso- occlusive disease. Carotid ultrasound showing 50-69% possible stenosis of the left carotid. Review of Systems All other systems reviewed negative except as stated in HPI [facility] - History History Provided By: Patient - Medical History Medical History: Medical History (Last Reviewed 03/26/18 @ 09:22 by Wale Medrano) Melanoma Depression Diabetes ESRD (end stage renal disease) Hypertension - Surgical History Surgical History: Surgical History (Last Reviewed 03/26/18 @ 09:22 by Wale Medrano) H/O foot surgery Hx of neck surgery Hx of tonsillectomy - Tobacco History Second Hand Smoke Exposure: No Smoking Status: Never smoker - Alcohol History How Often Do You Have a Drink Containing Alcohol: Never - Substance Use History Substance History: No History of Abuse - Travel History Recent Travel in the [place] Within the Last 8 Weeks: No Recent Travel Out of the Country Within the Last 8 Weeks: No - Immunization History Tetanus Immunization: <5 Years Medications and Allergies Active Medications: Active Medications Acetaminophen (Tylenol) 650 mg PO UNSCH PRN PRN Reason: SEE LABEL COMMENTS Aspirin (Aspirin) 325 mg PO DAILY JACKLYN Last Admin: 03/26/18 08:09 Dose: 325 mg Dextrose (D50w Vial) 50 ml IV.PUSH UNSCH PRN PRN Reason: PER HYPOGLYCEMIA PROTOCOL Diphenhydramine HCl (Benadryl) 25 mg PO UNSCH PRN PRN Reason: SEE LABEL COMMENTS Gelatin (Gelfoam 12 Mm/7 Mm Topical) 1 foam TOPICAL PRN PRN PRN Reason: help stop bleeding from site Gentamicin Sulfate (Gentamicin Inj) 20 mg OTHER WITH DIALYSIS PRN PRN Reason: Dwell Gentamycin Lock Glucagon (Glucagon Inj) 1 mg OTHER UNSCH PRN PRN Reason: for Hypoglycemia Protocol Heparin Sodium (Porcine) (Heparin Inj) 8,000 units OTHER WITH DIALYSIS PRN PRN Reason: for machine prime Heparin Sodium (Porcine) (Heparin Inj) 1,000 units OTHER WITH DIALYSIS PRN PRN Reason: Dwell Heparin to Fill Catheter Sodium Chloride (Ns Inj) 1,000 mls @ 70 mls/hr IV.CONT .[id number] [facility] Last Admin: 03/26/18 01:54 Dose: 70 mls/hr Albumin Human (Flexbumin 25% Inj) 100 mls @ 60 mls/hr IV.SIG WITH DIALYSIS PRN PRN Reason: hypotension / volume replace Sodium Chloride (Ns Inj) 1,000 mls @ 0 mls/hr OTHER .Q0M PRN PRN Reason: for prime and rinse back Sodium Chloride (Ns Inj) 1,000 mls @ 200 mls/hr OTHER .Q5H PRN PRN Reason: for dialyzer flush PRN Sodium Chloride (Ns Inj) 1,000 mls @ 0 mls/hr IV.CONT .Q0M PRN PRN Reason: hypotension / volume replace Fosphenytoin Sodium 100 mgpe/ (Sodium Chloride) 52 mls @ 208 mls/hr IV.SIG Q8H [facility] Last Admin: 03/26/18 10:26 Dose: 208 mls/hr Insulin Aspart (Novolog Insulin Correctional Sugar Inj) 0 unit SQ ACHS JACKLYN; Protocol Last Admin: 03/26/18 07:54 Dose: Not Given Insulin Detemir (Levemir Inj) 20 unit SQ QPM [facility] Last Admin: 03/25/18 18:37 Dose: Not Given Labetalol HCl (Trandate Inj) 10 mg IV.PUSH Q2H PRN PRN Reason: For SBP > 200 or DBP > 100 Lorazepam (Ativan Inj) 1 mg IV.PUSH Q4H PRN PRN Reason: SEIZURES Losartan Potassium (Cozaar) 100 mg PO DAILY [facility] Mannitol (Mannitol Inj) 12.5 gm IV.PUSH UNSCH PRN PRN Reason: hypotension / volume replace Metoclopramide HCl (Reglan) 10 mg PO Q6H [facility] Last Admin: 03/26/18 08:08 Dose: 10 mg Minoxidil (Loniten) 10 mg PO BID [facility] Last Admin: 03/26/18 08:09 Dose: 10 mg Naproxen (Naprosyn) 500 mg PO BID [facility] Last Admin: 03/26/18 08:09 Dose: 500 mg Nitroglycerin (Nitrostat Sl) 0.4 mg SL Q5M PRN PRN Reason: CHEST PAIN Ondansetron HCl (Zofran Inj) 4 mg IV.PUSH UNSCH PRN PRN Reason: NAUSEA OR VOMITING Pravastatin Sodium (Pravachol) 40 mg PO HS [facility] Last Admin: 03/25/18 20:57 Dose: 40 mg Sertraline HCl (Zoloft) 100 mg PO DAILY [facility] Last Admin: 03/26/18 08:10 Dose: 100 mg Sevelamer Carbonate (Renvela) 3,200 mg PO TID [facility] Last Admin: 03/26/18 08:11 Dose: 3,200 mg Sodium Chloride (Ns Flush) 2 ml IV.FLUSH BID [facility] Last Admin: 03/26/18 08:11 Dose: Not Given Sodium Chloride (Ns Flush) 2 ml IV.FLUSH PRN PRN PRN Reason: FLUSH AFTER USING IV ACCESS Sodium Chloride (Ns Flush) 5 ml IV.FLUSH PRN PRN PRN Reason: flush each lumen during HD Allergies Allergy/AdvReac Type Severity Reaction Status Date / Time diatrizoate meglumine AdvReac Mild NAUSEA/VOMI Verified 03/25/18 11:28 TING gadobenic acid AdvReac Mild NAUSEA/VOMI Verified 03/25/18 11:28 TING gadodiamide AdvReac Mild NAUSEA/VOMI Verified 03/25/18 11:28 TING iodixanol AdvReac Mild NAUSEA/VOMI Verified 03/25/18 11:28 TING iohexol AdvReac Mild NAUSEA/VOMI Verified 03/25/18 11:28 TING Home Medications Medication Instructions Recorded Confirmed Type insulin detemir U-100 [Levemir 20 unit SUBCUT QPM 03/25/18 03/25/18 History U-100 Insulin] losartan 100 mg PO DAILY 03/25/18 03/25/18 History metoclopramide HCl 10 mg PO Q6H 03/25/18 03/25/18 History minoxidil 10 mg PO BID 03/25/18 03/25/18 History naproxen sodium [Aleve] 440 mg PO BID 03/25/18 03/25/18 History sertraline 100 mg PO DAILY 03/25/18 03/25/18 History sevelamer carbonate [Renvela] 3,200 mg PO TID 03/25/18 03/25/18 History Exam Vital signs: Vital Signs 03/25/18 11:00 03/25/18 11:18 03/25/18 11:22 Temperature 97.5 F L Pulse Rate 90 85 84 Respiratory Rate 18 18 Blood Pressure 237/119 H 252/119 H Pulse Oximetry 94 L 97 03/25/18 11:23 03/25/18 11:40 03/25/18 11:45 Temperature Pulse Rate 73 67 Respiratory Rate 20 18 Blood Pressure 126/121 H 256/89 H Pulse Oximetry 97 97 98 03/25/18 11:56 03/25/18 13:34 03/25/18 20:00 Temperature 97.7 F Pulse Rate 67 71 69 Respiratory Rate 18 20 18 Blood Pressure 229/77 H 217/100 H 210/104 H Pulse Oximetry 97 97 94 L 03/26/18 00:00 03/26/18 04:00 03/26/18 08:00 Temperature 98.5 F 98.7 F 98.2 F Pulse Rate 67 66 73 Respiratory Rate 18 18 21 Blood Pressure 199/81 H 200/81 H 237/98 H Pulse Oximetry 95 95 95 Intake & Output 03/25/18 03/26/18 03/26/18 18:59 06:59 18:59 Intake Total 213 / 213 890 / 890 415 / 415 Output Total 2500 / 2500 200 / 200 0 / 0 Balance -2287 / -2287 690 / 690 415 / 415 Weight 94.801 kg 101.1 kg Intake: IV 213 / 213 800 / 800 175 / 175 NS Inj 1,000 ML @ 70 mls/hr IV. 155 / 155 800 / 800 CONT .[id number] JACKLYN Rx#: [id number] Calcium Gluconate Inj 1 GM In NS Inj 100 ML @ 110 mls/hr IV. SIG ONCE ONE Rx#:[id number] Oral 90 / 90 240 / 240 Output: Urine 200 / 200 0 / 0 Hemodialysis Amount 2500 / 2500 Other: Weight On Admission 94.801 kg Narrative: GENERAL: in NAD, SKIN: Warm and dry. HEAD: Atraumatic. Normocephalic. EYES: Pupils equal and round. No scleral icterus. ENT: No nasal bleeding or discharge. Mucous membranes pink and moist. NECK: Trachea midline. No JVD. RESPIRATORY: No accessory muscle use. GASTROINTESTINAL: Abdomen soft, non-tender, nondistended. MUSCULOSKELETAL: Extremities without clubbing, cyanosis, or edema. No obvious deformities. NEUROLOGICAL: Awake and alert. Oriented x3 no aphasia, fluent articulate, No facial asymmetry, eomi, VFF, No drift, stocking glove distribution neuropathy reduced pinprick light touch, left FDI atrophy mild weakness in left finger flexors extensors lower extremity hip flexor weakness distally slightly in the toes chronic depressed reflexes PSYCHIATRIC: Appropriate mood and affect, calm pleasant - Constitutional no acute distress - Routine HEENT Exam Head: Present: normocephalic Eye: Present: EOMI Results - Labs CBC & Chem 7: 03/26/18 07:50 03/26/18 07:50 Labs: Laboratory Results - last 24 hr 03/25/18 03/25/18 03/25/18 11:15 11:15 11:15 CBC w Diff Auto diff final WBC 11.1 H RBC 4.26 L Hgb 13.0 Hct 40.0 MCV 93.9 MCH 30.5 MCHC 32.5 RDW 13.6 Plt Count 238 MPV 8.5 Neut % (Auto) 70.1 H Lymph % (Auto) 13.8 [place] % (Auto) 8.8 H Eos % (Auto) 6.3 H Baso % (Auto) 1.0 Neut # (Auto) 7.8 H Lymph # (Auto) 1.5 [place] # (Auto) 1.0 H Eos # (Auto) 0.7 H Baso # (Auto) 0.1 WBC Differential . Differential Comment . PT INR APTT Sodium Potassium Chloride Carbon Dioxide Anion Gap BUN Creatinine Estimated GFR POC Glucose Random Glucose Calcium Phosphorus Total Creatine Kinase CK-MB (CK-2) Troponin I Triglycerides 85 Cholesterol 124 LDL Cholesterol, Calc 42 HDL Cholesterol 64.6 H Cholesterol/HDL Ratio 1.91 Phenytoin Blood Type O Positive Antibody Screen Negative 03/25/18 03/25/18 03/25/18 11:15 11:15 13:54 CBC w Diff WBC RBC Hgb Hct MCV MCH MCHC RDW Plt Count MPV Neut % (Auto) Lymph % (Auto) [place] % (Auto) Eos % (Auto) Baso % (Auto) Neut # (Auto) Lymph # (Auto) [place] # (Auto) Eos # (Auto) Baso # (Auto) WBC Differential Differential Comment PT 11.4 INR 1.1 APTT 31.8 H Sodium 137 Potassium 6.3 H Chloride 99 Carbon Dioxide 24.2 Anion Gap 14 BUN 83 H Creatinine 7.30 H Estimated GFR 8 L POC Glucose Random Glucose 109 H Calcium 9.2 Phosphorus Total Creatine Kinase 151 CK-MB (CK-2) 5.2 H Troponin I 0.15 H 0.14 H Triglycerides Cholesterol LDL Cholesterol, Calc HDL Cholesterol Cholesterol/HDL Ratio Phenytoin Blood Type Antibody Screen 03/25/18 03/25/18 03/25/18 18:33 20:07 20:59 CBC w Diff WBC RBC Hgb Hct MCV MCH MCHC RDW Plt Count MPV Neut % (Auto) Lymph % (Auto) [place] % (Auto) Eos % (Auto) Baso % (Auto) Neut # (Auto) Lymph # (Auto) [place] # (Auto) Eos # (Auto) Baso # (Auto) WBC Differential Differential Comment PT INR APTT Sodium Potassium Chloride Carbon Dioxide Anion Gap BUN Creatinine Estimated GFR POC Glucose 81 95 Random Glucose Calcium Phosphorus Total Creatine Kinase CK-MB (CK-2) Troponin I 0.16 H Triglycerides Cholesterol LDL Cholesterol, Calc HDL Cholesterol Cholesterol/HDL Ratio Phenytoin Blood Type Antibody Screen 03/26/18 03/26/18 03/26/18 07:50 07:50 07:52 CBC w Diff Auto diff final WBC 9.7 RBC 4.05 L Hgb 12.7 L Hct 37.3 L MCV 92.3 MCH 31.4 MCHC 34.0 RDW 13.2 Plt Count 197 MPV 7.9 Neut % (Auto) 67.5 Lymph % (Auto) 15.0 [place] % (Auto) 11.6 H Eos % (Auto) 5.3 H Baso % (Auto) 0.6 Neut # (Auto) 6.5 Lymph # (Auto) 1.5 [place] # (Auto) 1.1 H Eos # (Auto) 0.5 H Baso # (Auto) 0.1 WBC Differential . Differential Comment . PT INR APTT Sodium 137 Potassium 4.8 D Chloride 96 L Carbon Dioxide 29.4 Anion Gap 12 BUN 50 H Creatinine 5.20 H Estimated GFR 12 L POC Glucose 83 Random Glucose 92 Calcium 8.5 Phosphorus 5.6 H Total Creatine Kinase CK-MB (CK-2) Troponin I Triglycerides Cholesterol LDL Cholesterol, Calc HDL Cholesterol Cholesterol/HDL Ratio Phenytoin 6.9 L Blood Type Antibody Screen - Imaging Impressions Chest X-Ray 03/25/18 10:51 CONCLUSION: No acute pulmonary infiltrates. Head CT 03/25/18 10:51 CONCLUSION: 1. No acute intracranial hemorrhage. 2. Bilateral small old appearing lacunar infarcts in the basal ganglia regions. Report was called by [Dr. Rosenbaum to Dr. Vanegas at 11:01 AM. ] Carotid Doppler Study 03/25/18 11:12 CONCLUSION: 1. Elevation of the peak systolic velocity of the left ICA suggesting 50-69% stenosis although the ICA/CCA ratio is suggestive of less than 50% stenosis. CTA of the carotids may be helpful for further evaluation of these discordant findings. 2. No significant stenosis involving the right internal carotid artery. Head MRI 03/25/18 11:12 CONCLUSION: 1. No acute cerebral infarction. 2. Bilateral old small lacunar infarcts. 3. Chronic left mastoiditis. Head MRA 03/25/18 11:12 CONCLUSION: 1. Negative MRA [place] ([place]) non contrast. Review/Management - Diagnosis (1) Seizure Code(s): R56.9 - Unspecified convulsions Status: Acute Current Visit: Yes (2) Transient cerebral ischemia Code(s): G45.9 - Transient cerebral ischemic attack, unspecified Status: Acute Current Visit: Yes (3) Acute hyperkalemia Code(s): E87.5 - Hyperkalemia Status: Acute Current Visit: Yes (4) Chronic kidney disease with end stage renal failure on dialysis Code(s): N18.6 - End stage renal disease; Z99.2 - Dependence on renal dialysis Status: Acute Current Visit: Yes - Review/Management Plan: Blood pressure on arrival 237/119. Hypertensive encephalopathy possible seizure activity Recommendation Continue Dilantin p.o. Blood pressure control Aspirin MRA carotids noncontrast he get further evaluation with vascular surgery which can be done in the outpatient setting Discharge planning once blood pressure stabilized and outpatient follow-up Behavioral modification and risk factor reduction. Weight loss, blood pressure control, blood sugar control, lipid control. Exercise No driving, operating any heavy machinery or dangerous machinery, swimming alone for at least 6 months of being seizure, spell free. Discussed with patient and mother (2) Transient cerebral ischemia Qualifiers: Transient cerebral ischemia type: unspecified Qualified Code(s): G45.9 - Transient cerebral ischemic attack, unspecified
--- NOTE | 2018-03-26 11:15 | OTSOAPIP ---
RECEIVED OCCUPATIONAL THERAPY ORDERS. PATIENT HAS BEEN TRANSFERRED TO INTENSIVE CARE DUE TO HYPERTENSION. ATTEMPTED TO SEE PATIENT, HOWEVER MARIJA SAWYER ADVISED TO HOLD EVALUATION DUE TO PATIENTS BLOOD PRESSURE STILL ELEVATED WITH SYSTOLIC IN THE 230S AND DIASTOLIC IN THE 90S. WILL REATTEMPT ONCE PATIENT IS STABLE. INTERDISCIPLINARY COMMUNICATION: REVIEWED ELECTRONIC MEDICAL RECORD, SPOKE WITH MARIJA SAWYER Therapist: Cayla Samuel,OTR/L Signature on file
[2018-03-26 11:16] LABS: Hemoglobin A1c 5.2 % (4.3-6.0)
--- NOTE | 2018-03-26 11:28 | P.PNIM ---
Subjective Interval history: No overnight events, speech is back to normal, left-sided facial droop is at baseline, myoclonic jerks resolved. No fever or chills. Physical Exam Vital signs: Last Vital Signs Temp 98.2 F 03/26/18 08:00 Pulse 73 03/26/18 08:00 Resp 21 03/26/18 08:00 BP 237/98 H 03/26/18 08:00 Pulse Ox 95 03/26/18 08:00 Intake & Output 03/24/18 03/25/18 03/26/18 03/27/18 06:59 06:59 06:59 06:59 Intake Total 1103 / 1103 415 / 415 Output Total 2700 / 2700 0 / 0 Balance -1597 / -1597 415 / 415 Weight 101.1 kg Narrative: GENERAL: Not in acute distress, well-nourished. CARDIOVASCULAR: Regular rate and rhythm without murmurs, gallops, or rubs. RESPIRATORY: Clear to auscultation with normal respiratory effort. Breath sounds equal bilaterally. GASTROINTESTINAL: Abdomen soft, normal bowel sounds, non-tender, nondistended.. No guarding. TROY and exam deferred. MUSCULOSKELETAL: Extremities without clubbing, cyanosis, or edema. Distal pulses intact, 2+ bilaterally. INTEGUMENTARY: Warm and dry, no rash of generalized distribution. NEUROLOGICAL: Alert, awake and oriented x3, there is mild facial asymmetry, left side drooping but this is baseline according to patient and patient's mother after his neck surgery. Moves all 4 extremities, muscle strength testing 5 over 5 all 4 extremities but with generalized weakness. No further myoclonic jerks. Results Labs CBC & Chem 7: 03/26/18 07:50 03/26/18 07:50 Imaging Imaging: Impressions Chest X-Ray 03/25/18 10:51 CONCLUSION: No acute pulmonary infiltrates. Carotid Doppler Study 03/25/18 11:12 CONCLUSION: 1. Elevation of the peak systolic velocity of the left ICA suggesting 50-69% stenosis although the ICA/CCA ratio is suggestive of less than 50% stenosis. CTA of the carotids may be helpful for further evaluation of these discordant findings. 2. No significant stenosis involving the right internal carotid artery. Head MRI 03/25/18 11:12 CONCLUSION: 1. No acute cerebral infarction. 2. Bilateral old small lacunar infarcts. 3. Chronic left mastoiditis. Head MRA 03/25/18 11:12 CONCLUSION: 1. Negative MRA [place] ([place]) non contrast. Assessment and Plan Plan This is a 52-year-old male with history of hypertension, end-stage renal disease on hemodialysis presenting with slurring of speech, right facial droop and myoclonic jerks per TIA versus CVA-symptoms are resolving, speech is fluent, mild tongue deviation to the left, no facial droop, no focal weakness. CT scan of the brain unremarkable. MRI of the brain did not show any infarction, small old lacunar infarcts, carotid Doppler suggestive of left ICA stenosis about 50-69%, no stenosis of the right ICA. Head MRA negative. Echocardiogram, hemoglobin A1c and lipid panel pending. Continue aspirin. Will control blood pressure now. Continue telemetry and holter monitor, Per neurology, he can get further evaluation with vascular surgery as outpatient for his left carotid artery. Myoclonic jerks secondary to generalized seizure- EEG ordered, showed generalized spike and wave activity seen episodically consistent with probable generalized seizure but no evidence of status. Neurology following. Switch Dilantin to oral, follow-up Dilantin levels tomorrow level is 6.9 today. End-stage renal disease on hemodialysis-nephrology following, continue hemodialysis Sunday and Sunday, received hemodialysis yesterday. Hyperkalemia-EG within normal limits with potassium of 6.3, status post Kayexalate, D50 insulin, calcium gluconate. Status post dialysis, potassium is now 4.8. Diabetes mellitus-resume home dose of Levemir 20 units at night, sliding scale insulin, Accu-Cheks Hypertension-continue losartan, minoxidil, start hydralazine 50 mg 3 times a day , metoprolol as needed. Troponin elevation-likely secondary to end-stage renal disease. Patient does not have any chest pain, troponin remained flat. DVT prophylaxis: SCDs Discharge once blood pressure is stable. Discussed with neurology. Progress Note: Quality VTE Deep Vein Thrombosis/Pulmonary Embolism Present on Admission: No
[2018-03-26] MEDS: hydrALAZINE 50 MG Tablet PO SCH ×3 (11:44→18:30)
--- NOTE | 2018-03-26 13:09 | P.PNNP ---
Subjective Interval history: Patient is alert, no SOB, feeling better, no headache or dizziness. Physical Exam Vital signs: Vital Signs 03/25/18 13:34 03/25/18 20:00 03/26/18 00:00 Temperature 97.7 F 98.5 F Pulse Rate 71 69 67 Respiratory Rate 20 18 18 Blood Pressure 217/100 H 210/104 H 199/81 H Pulse Oximetry 97 94 L 95 03/26/18 04:00 03/26/18 08:00 Temperature 98.7 F 98.2 F Pulse Rate 66 73 Respiratory Rate 18 21 Blood Pressure 200/81 H 237/98 H Pulse Oximetry 95 95 Intake & Output 03/25/18 03/26/18 03/26/18 18:59 06:59 18:59 Intake Total 213 / 213 890 / 890 415 / 415 Output Total 2500 / 2500 200 / 200 0 / 0 Balance -2287 / -2287 690 / 690 415 / 415 Weight 94.801 kg 101.1 kg Intake: IV 213 / 213 800 / 800 175 / 175 NS Inj 1,000 ML @ 70 mls/hr IV. 155 / 155 800 / 800 CONT .[id number] [facility] Rx#: [id number] Calcium Gluconate Inj 1 GM In 58 / 58 NS Inj 100 ML @ 110 mls/hr IV. SIG ONCE ONE Rx#:[id number] Oral 90 / 90 240 / 240 Output: Urine 200 / 200 0 / 0 Hemodialysis Amount 2500 / 2500 Other: Weight On Admission 94.801 kg Narrative: GENERAL: Not in acute distress, well-nourished. CARDIOVASCULAR: Regular rate and rhythm without murmurs, gallops, or rubs. RESPIRATORY: Clear to auscultation with normal respiratory effort. Breath sounds equal bilaterally. GASTROINTESTINAL: Abdomen soft, normal bowel sounds, non-tender, nondistended.. No guarding. TROY and exam deferred. MUSCULOSKELETAL: Extremities without clubbing, cyanosis, or edema. Distal pulses intact, 2+ bilaterally. INTEGUMENTARY: Warm and dry, no rash of generalized distribution. NEUROLOGICAL: Alert, awake and oriented x3, there is mild facial asymmetry, left side drooping but this is baseline according to patient and patient's mother after his neck surgery. Moves all 4 extremities, muscle strength testing 5 over 5 all 4 extremities but with generalized weakness. No further myoclonic jerks. Assessment and Plan - Assessment (1) Hypertension Code(s): I10 - Essential (primary) hypertension Status: Acute (2) Transient cerebral ischemia Code(s): G45.9 - Transient cerebral ischemic attack, unspecified Status: Acute Qualifiers: Transient cerebral ischemia type: unspecified Qualified Code(s): G45.9 - Transient cerebral ischemic attack, unspecified (3) Acute hyperkalemia Code(s): E87.5 - Hyperkalemia Status: Acute (4) Chronic kidney disease with end stage renal failure on dialysis Code(s): N18.6 - End stage renal disease; Z99.2 - Dependence on renal dialysis Status: Acute (5) Seizure Code(s): R56.9 - Unspecified convulsions Status: Acute - Plan Patient with end stage renal disease on HD and history of Hypertension. Now admitted with neurological symptoms and seizure. HD was done yesterday. Neurology following, On Phenytoin, no more seizure. BP is on higher side, started on Hydralazine and Losartan increased, will follow. HD will be in AM again. D/W the patient and mother at bed side.
[2018-03-26 13:25] LABS: Chol/HDL Ratio 2.1 Ratio
--- NOTE | 2018-03-26 13:53 | ECG ---
Date Performed: 03/25/2018 Time Performed: 20:01:32 PTAGE: 52 years EKG: Sinus rhythm PATTERN CONSISTENT WITH PULMONARY DISEASE LEFT ANTERIOR FASCICULAR BLOCK ABNORMAL QRS-T ANGLE PROLON GED QT INTERVAL ABNORMAL ECG Since PREVIOUS TRACING , no significant change noted PREVIOUS TRACIN03/25/2018 13.58 DOCTOR: Aaron Jin Interpretating Date/Time 03/26/2018 13:53:00
--- NOTE | 2018-03-26 13:53 | ECG ---
Date Performed: 03/25/2018 Time Performed: 11:18:46 PTAGE: 52 years EKG: Sinus rhythm PATTERN CONSISTENT WITH PULMONARY DISEASE INCOMPLETE RIGHT BUNDLE BRANCH BLOCK LEFT ANTERIOR FASCICU LAR BLOCK ABNORMAL ECG Compared to PREVIOUS TRACING , lateral changes are less prominent. PREVIOUS TRACIN10/11/2013 18.50 DOCTOR: Aaron Jin Interpretating Date/Time 03/26/2018 13:52:42
--- NOTE | 2018-03-26 13:53 | ECG ---
Date Performed: 03/25/2018 Time Performed: 13:58:01 PTAGE: 52 years EKG: Sinus rhythm PATTERN CONSISTENT WITH PULMONARY DISEASE LEFT ANTERIOR FASCICULAR BLOCK ABNORMAL QRS-T ANGLE ABNORM AL ECG Since PREVIOUS TRACING , no significant change noted PREVIOUS TRACIN03/25/2018 11.18 DOCTOR: Aaron Jin Interpretating Date/Time 03/26/2018 13:52:51
--- NOTE | 2018-03-26 14:41 | P.DCO ---
Diagnosis (1) Transient cerebral ischemia: Status: Acute (2) Seizure: Status: Acute Physical Therapy Order: Evaluate and treat Home Health Nursing Order: Nursing assessment with vital signs Case Management Consult Case Management Consult-Home Health: Yes I have seen patient Aaron Patel on 03/26/18. My clinical findings support the need for the requested home health care services because: I certify that my clinical findings support that this patient is homebound because: _ (1) Transient cerebral ischemia Qualifiers: Transient cerebral ischemia type: unspecified Qualified Code(s): G45.9 - Transient cerebral ischemic attack, unspecified
[2018-03-26] MEDS: Phenytoin Sodium 100 MG Capsule PO SCH ×2 (15:43→20:07)
[2018-03-26] MEDS: Insulin Detemir Inj 1,000 UNIT/10 ML Vial SQ SCH (18:31)
[2018-03-27] MEDS: Metoclopramide 10 MG Tablet PO SCH ×4 (05:26→17:16)
[2018-03-27] MEDS: Insulin NovoLOG Aspart Correctional Sugar Inj SQ SCH ×4 (08:56→20:55)
--- NOTE | 2018-03-27 09:58 | ECHRPT ---
Indication: CVA/TIA CONCLUSIONS Normal left ventricular size. Moderate concentric left ventricular hypertrophy. The left ventricular systolic function is low normal with an estimated ejection fraction in the rang e of 50- 55%. The left atrial size is [id number] dilated. Trace mitral valve regurgitation. Mitral annular calcification is present. There is trace tricuspid valve regurgitation. The estimated pulmonary arterial pressure is 31 mmHg. There is a trivial pericardial effusion present. BP: 210 / 77 HR: 63 Rhythm: MEASUREMENTS (Male / Female) Normal Values Technical Quality:Technically difficult study 2D ECHO LV Diastolic Diameter PLAX 5.4 cm 4.2 - 5.9 / 3.9 - 5.3 cm LV Systolic Diameter PLAX 3.2 cm IVS Diastolic Thickness 1.2 cm 0.6 - 1.0 / 0.6 - 0.9 cm LVPW Diastolic Thickness 1.3 cm 0.6 - 1.0 / 0.6 - 0.9 cm LV Relative Wall Thickness 0.5 RV Internal Dim ED PLAX 3.6 cm LVOT Diameter 2.0 cm Aortic Root Diameter 3.0 cm LA Systolic Diameter LX 4.7 cm 3.0 - 4.0 / 2.7 - 3.8 cm DOPPLER AV Peak Velocity 159.0 cm/s AV Peak Gradient 10.1 mmHg LVOT Peak Velocity 101.0 cm/s LVOT Peak Gradient 4.1 mmHg AV Area Cont Eq pk 2.0 cm MV Peak Velocity 109.0 cm/s MV Peak Gradient 4.8 mmHg MV Mean Velocity 66.0 cm/s MV Mean Gradient 2.0 mmHg Mitral E Point Velocity 79.0 cm/s Mitral A Point Velocity 90.8 cm/s Mitral E to A Ratio 0.9 LV E' Lateral Velocity 4.2 cm/s Mitral E to LV E' Lateral Ratio 18.9 LV E' Septal Velocity 5.3 cm/s Mitral E to LV E' Septal Ratio 15.0 TR Peak Velocity 229.0 cm/s TR Peak Gradient 21.0 mmHg Right Atrial Pressure 10.0 mmHg Pulmonary Artery Systolic Pressu 31.0 mmHg Right Ventricular Systolic Press 31.0 mmHg PV Peak Velocity 114.0 cm/s PV Peak Gradient 5.2 mmHg FINDINGS LEFT VENTRICLE Normal left ventricular size. Moderate concentric left ventricular hypertrophy. The left ventricular systolic function is low normal with an estimated ejection fraction in the rang e of 50- 55%. Doppler parameters are consistent with impaired left ventricular relaxtion (grade 1 diastolic dysfun ction). RIGHT VENTRICLE Normal right ventricular size and systolic function. LEFT ATRIUM The left atrial size is [id number] dilated. RIGHT ATRIUM The right atrial size is normal. ATRIAL SEPTUM Normal atrial septal thickness without atrial level shunting by limited color doppler interrogation. AORTA The aortic root and proximal ascending aorta are normal in size on limited imaging. MITRAL VALVE Trace mitral valve regurgitation. Mitral annular calcification is present. AORTIC VALVE Trileaflet aortic valve. No aortic valve stenosis or regurgitation. TRICUSPID VALVE There is trace tricuspid valve regurgitation. The estimated pulmonary arterial pressure is 31 mmHg. PULMONARY VALVE No pulmonary valve regurgitation or stenosis. VESSELS The inferior vena cava is normal in size. PERICARDIUM There is a trivial pericardial effusion present. Aaron Jin MD (Electronically Signed) Final Date:27 March 2018 09:57
[2018-03-27] MEDS: Aspirin 325 MG Tablet PO SCH (10:13)
[2018-03-27] MEDS: Phenytoin Sodium 100 MG Capsule PO SCH ×2 (10:13→20:46)
[2018-03-27] MEDS: Minoxidil 10 MG Tablet PO SCH ×2 (10:13→20:52)
[2018-03-27] MEDS: Naproxen 500 MG Tablet PO SCH ×2 (10:14→20:47)
[2018-03-27] MEDS: Sertraline 100 MG Tablet PO SCH (10:16)
[2018-03-27] MEDS: hydrALAZINE 50 MG Tablet PO SCH ×3 (11:10→17:16)
--- NOTE | 2018-03-27 11:22 | MR ---
EXAM DATE: 03/27/2018 11:18 AM EST AGE/SEX: 52 years / Male INDICATIONS: . CVA. CLINICAL DATA: This is the patient's subsequent encounter. Patient reports that signs and symptoms h ave been present for 2 days and indicates a pain score of 0/10. MEDICAL/SURGICAL HISTORY: Hypertension. melanoma, dialysis . melanoma surgery on leg and neck, foot surgery COMPARISON: No prior exams available for comparison. TECHNIQUE: 3D time-of- flight MRA of the extracranial circulation was performed using a neurovascul ar coil. Post processing was performed including rotating sub-volume maximum intensity projections o f each carotid artery, rotating full-volume maximum intensity projections of both carotid arteries, s agittal and coronal sliding thin-slab reformations of each carotid artery, and left oblique sliding t hin-slab reformation through the aortic arch to include the origin of the arch branch vessels. FINDINGS: Aortic Arch : There is a three-vessel origin of the great vessels from the aorta. No evidence of o stial narrowing. Right Carotid : The common carotid artery is intact. The carotid bulb has a normal configuration wi thout ulceration or narrowing. The internal carotid artery lumen is smooth without stenosis. The ex ternal carotid artery is intact. Left Carotid : The common carotid artery is intact. The carotid bulb has a normal configuration wit hout ulceration or narrowing. The internal carotid artery lumen is smooth without stenosis. The ext ernal carotid artery is intact. Vertebrals : The vertebral arteries are patent bilaterally. The right vertebral artery is dominant.. CONCLUSION: 1. Unremarkable MRA of the carotid arteries. Percent stenosis is calculated using the diameter of the stenotic region over the diameter of the nor mal distal internal carotid artery Electronically signed by: Erich Rosenbaum MD Board Certified Radiologist 03/27/2018 11:20 AM EST
--- NOTE | 2018-03-27 14:40 | P.PNIM ---
Subjective Interval history: Patient says he is feeling right. Says he is back to baseline. Denies any chest pain or shortness of breath. Physical Exam Vital signs: Vital Signs 03/26/18 15:00 03/26/18 15:18 03/26/18 16:00 Temperature Pulse Rate 66 70 66 Respiratory Rate 9 L 19 15 Blood Pressure 187/79 H Pulse Oximetry 94 L 95 95 03/26/18 16:18 03/26/18 17:00 03/26/18 17:18 Temperature Pulse Rate 68 70 70 Respiratory Rate 5 L 14 21 Blood Pressure 161/63 H 169/97 H Pulse Oximetry 93 L 95 95 03/26/18 19:00 03/26/18 19:18 03/26/18 20:00 Temperature 98.4 F Pulse Rate 68 70 74 Respiratory Rate 16 15 Blood Pressure 137/93 H Pulse Oximetry 97 95 93 L 03/26/18 20:18 03/26/18 21:00 03/26/18 21:21 Temperature Pulse Rate 72 68 72 Respiratory Rate 18 17 17 Blood Pressure 168/85 H 189/102 H Pulse Oximetry 94 L 94 L 95 03/26/18 22:00 03/26/18 23:00 03/26/18 23:18 Temperature Pulse Rate 72 70 72 Respiratory Rate 20 14 15 Blood Pressure 197/83 H 222/100 H 220/79 H Pulse Oximetry 95 95 96 03/26/18 23:42 03/26/18 23:58 03/27/18 00:00 Temperature 98.5 F Pulse Rate 74 66 66 Respiratory Rate 32 H 12 15 Blood Pressure 242/118 H 140/69 146/60 H Pulse Oximetry 97 94 L 93 L 03/27/18 00:30 03/27/18 01:00 03/27/18 02:00 Temperature Pulse Rate 66 66 66 Respiratory Rate 15 16 16 Blood Pressure 121/44 L 138/54 L 128/74 Pulse Oximetry 93 L 93 L 94 L 03/27/18 02:30 03/27/18 03:00 03/27/18 03:30 Temperature Pulse Rate 64 64 66 Respiratory Rate 12 18 11 L Blood Pressure 147/59 H 148/42 H Pulse Oximetry 93 L 94 L 94 L 03/27/18 04:00 03/27/18 05:00 03/27/18 06:00 Temperature Pulse Rate 64 66 64 Respiratory Rate 15 15 13 Blood Pressure 132/63 139/72 143/42 H Pulse Oximetry 94 L 94 L 94 L 03/27/18 06:30 03/27/18 07:00 03/27/18 07:30 Temperature Pulse Rate 66 66 64 Respiratory Rate 13 14 12 Blood Pressure 153/60 H 171/55 H 142/53 H Pulse Oximetry 95 95 95 03/27/18 07:52 03/27/18 08:00 03/27/18 08:01 Temperature 97.9 F Pulse Rate 70 66 68 Respiratory Rate 15 16 16 Blood Pressure 169/62 H 158/74 H Pulse Oximetry 95 96 96 03/27/18 09:01 03/27/18 12:00 03/27/18 12:54 Temperature 97.5 F L Pulse Rate 66 69 72 Respiratory Rate 8 L 23 Blood Pressure 157/51 H 164/88 H Pulse Oximetry 94 L Intake & Output 03/26/18 03/27/18 03/27/18 18:59 06:59 18:59 Intake Total 415 / 415 160 / 160 Output Total 0 / 0 Balance 415 / 415 160 / 160 Weight 100.4 kg Intake: IV 175 / 175 Oral 240 / 240 160 / 160 Output: Urine 0 / 0 Other: # Voids 6 Date of Last Bowel Movement 03/26/18 03/26/18 03/26/18 # Bowel Movements 1 Narrative: GENERAL: Patient sitting up in chair. Appears comfortable. SKIN: Warm and dry. HEAD: Normocephalic. EYES: No scleral icterus. No injection or drainage. NECK: Supple, trachea midline. No JVD. CARDIOVASCULAR: Regular rate and rhythm without murmurs, gallops, or rubs. RESPIRATORY: Breath sounds equal bilaterally. No accessory muscle use. GASTROINTESTINAL: Abdomen soft, non-tender, nondistended. MUSCULOSKELETAL: No cyanosis, or edema. BACK: Nontender without obvious deformity. No CVA tenderness. Results - Labs CBC & Chem 7: 03/26/18 07:50 03/26/18 07:50 Laboratory Results - last 24 hr 03/26/18 03/26/18 03/27/18 17:06 21:02 04:25 POC Glucose 125 H 127 H Phenytoin 4.1 L 03/27/18 03/27/18 03/27/18 07:48 12:32 13:30 POC Glucose 84 115 H Phenytoin 3.9 L - Imaging Impressions Neck MRA 03/27/18 12:36 CONCLUSION: 1. Unremarkable MRA of the carotid arteries. _ Percent stenosis is calculated using the diameter of the stenotic region over the diameter of the normal distal internal carotid artery _ Assessment and Plan - Assessment (1) Transient cerebral ischemia Code(s): G45.9 - Transient cerebral ischemic attack, unspecified Status: Acute (2) Seizure Code(s): R56.9 - Unspecified convulsions Status: Acute - Plan This is a 52-year-old male with history of hypertension, end-stage renal disease on hemodialysis presenting with slurring of speech, right facial droop and myoclonic jerks per //TIA versus CVA-symptoms are resolving, speech is fluent, mild tongue deviation to the left, no facial droop, no focal weakness. CT scan of the brain unremarkable. MRI of the brain did not show any infarction, small old lacunar infarcts, carotid Doppler suggestive of left ICA stenosis about 50-69%, no stenosis of the right ICA. Head MRA negative. Echocardiogram, hemoglobin A1c and lipid panel pending. Continue aspirin. Will control blood pressure now. Continue telemetry and holter monitor, Per neurology, he can get further evaluation with vascular surgery as outpatient for his left carotid artery. = Follow-up neurology recommendations. MRA unremarkable. Follow blood pressures. Appreciate PT assistance. Rehab recommended. //Myoclonic jerks secondary to generalized seizure- EEG ordered, showed generalized spike and wave activity seen episodically consistent with probable generalized seizure but no evidence of status. Neurology following. Switch Dilantin to oral, follow-up Dilantin levels tomorrow level is 6.9 today. = 03/27. Phenytoin low at 3.9. Defer to neurology. //End-stage renal disease on hemodialysis-nephrology following, continue hemodialysis Sunday and Sunday, received hemodialysis 03/25. //Hyperkalemia-EG within normal limits with potassium of 6.3, status post Kayexalate, D50 insulin, calcium gluconate. Status post dialysis, potassium is now 4.8. //Diabetes mellitus-continue home dose of Levemir 20 units at night, sliding scale insulin, Accu-Cheks //Hypertension-continue losartan, minoxidil, start hydralazine 50 mg 3 times a day, metoprolol as needed. //Troponin elevation-likely secondary to end-stage renal disease. Patient does not have any chest pain, troponin remained flat. //DVT prophylaxis: SCDs Discussed Condition With: Patient, nurse Discharge Planning: Tomorrow to rehab versus possibly home with home health. Will need neurology clearance. we will need nephrology follow-up for dialysis. (1) Transient cerebral ischemia Qualifiers: Transient cerebral ischemia type: unspecified Qualified Code(s): G45.9 - Transient cerebral ischemic attack, unspecified
[2018-03-27] MEDS: Insulin Detemir Inj 1,000 UNIT/10 ML Vial SQ SCH (17:16)
--- NOTE | 2018-03-27 17:22 | MG ---
cc: Emerson Salas MD, PhD TEST NUMBER: [id number] TECHNIQUE: A 17-channel EEG. DESCRIPTION: The background rhythm is symmetrical. Alpha frequency, 8 Hz, amplitude about 20 microvolts. There is some muscle artifact. No epileptiform features were seen. There were no myoclonic potentials are identified. Photic resultant of fairly well-developed driving response. INTERPRETATION: Abnormal EEG, this is much improved from the previous electroencephalogram. Emerson Salas MD, PhD CARRIE/ct , 04:43 PM , 04:47 PM
--- NOTE | 2018-03-27 18:58 | HM ---
Date Performed: 03/25/2018 Time Performed: 20:55:00 HOOKUP DATE: 03/25/18 08:55:00 PM Mon ANALYSIS START TIME: 03/25/2018 9:00:00 PM ANALYSIS END TIME: 03/26/2018 8:34:59 PM PATIENT AGE: 52 PATIENT HEIGHT PATIENT WEIGHT DRUG LIST PATIENT DIAGNOSIS: TIA TEST NARRATIVE: The patient's average heart rate was 69 BPM. No episodes of tachycardia wer e noted. No episodes of bradycardia were noted. No pauses exceeding 2.0 seconds were noted. 3 ventricular ectopics, which represented < 1% of the total beat count, were noted. The highest vent ricular ectopic frequency occurred from 10:00 AM to 11:00 AM Tue. During this time 2 VE(s) occurred. Ventricular ectopics were observed as 3 isolated beat(s) only. No couplets or runs were noted. 20 supraventricular ectopics, which represented < 1% of the total beat count, were noted. The highe st supraventricular ectopic frequency occurred from 03:00 AM to 04:00 AM Tue. During this time 3 SVE (s) occurred. No episodes of ST depression (defined as -1.0 mm or more) were noted in channel 1. No episodes of ST depression (defined as -1.0 mm or more) were noted in channel 2. No episodes of S T depression (defined as -1.0 mm or more) were noted in channel 3. only 12 hours recorded- no diary m aintained TEST INTERPRETATION: Sinus rhythm Rare PVCs Occasional PACs Signed by : Tara Yoder
--- NOTE | 2018-03-27 21:03 | P.PNNP ---
Subjective Interval history: Patient seen in AM, no complaint, feeling better. Physical Exam Vital signs: Vital Signs 03/26/18 21:21 03/26/18 22:00 03/26/18 23:00 Temperature Pulse Rate 72 72 70 Respiratory Rate 17 20 14 Blood Pressure 197/83 H 222/100 H Pulse Oximetry 95 95 95 03/26/18 23:18 03/26/18 23:42 03/26/18 23:58 Temperature 98.5 F Pulse Rate 72 74 66 Respiratory Rate 15 32 H 12 Blood Pressure 220/79 H 242/118 H 140/69 Pulse Oximetry 96 97 94 L 03/27/18 00:00 03/27/18 00:30 03/27/18 01:00 Temperature Pulse Rate 66 66 66 Respiratory Rate 15 15 16 Blood Pressure 146/60 H 121/44 L 138/54 L Pulse Oximetry 93 L 93 L 93 L 03/27/18 02:00 03/27/18 02:30 03/27/18 03:00 Temperature Pulse Rate 66 64 64 Respiratory Rate 16 12 18 Blood Pressure 128/74 147/59 H 148/42 H Pulse Oximetry 94 L 93 L 94 L 03/27/18 03:30 03/27/18 04:00 03/27/18 05:00 Temperature Pulse Rate 66 64 66 Respiratory Rate 11 L 15 15 Blood Pressure 132/63 139/72 Pulse Oximetry 94 L 94 L 94 L 03/27/18 06:00 03/27/18 06:30 03/27/18 07:00 Temperature Pulse Rate 64 66 66 Respiratory Rate 13 13 14 Blood Pressure 143/42 H 153/60 H 171/55 H Pulse Oximetry 94 L 95 95 03/27/18 07:30 03/27/18 07:52 03/27/18 08:00 Temperature Pulse Rate 64 70 66 Respiratory Rate 12 15 16 Blood Pressure 142/53 H 169/62 H Pulse Oximetry 95 95 96 03/27/18 08:01 03/27/18 09:01 03/27/18 12:00 Temperature 97.9 F Pulse Rate 68 66 69 Respiratory Rate 16 8 L Blood Pressure 158/74 H 157/51 H Pulse Oximetry 96 94 L 03/27/18 12:54 03/27/18 16:00 03/27/18 17:06 Temperature 97.5 F L 97.7 F Pulse Rate 72 65 78 Respiratory Rate 23 19 Blood Pressure 164/88 H 212/78 H Pulse Oximetry Intake & Output 03/27/18 03/27/18 03/28/18 06:59 18:59 06:59 Intake Total 160 / 160 Output Total 0 / 0 1999 Balance 160 / 160 0 / 0 -1999 Weight 100.4 kg Intake: Oral 160 / 160 Output: Urine 0 / 0 Hemodialysis Amount 1999 Other: Date of Last Bowel Movement 03/26/18 03/27/18 Narrative: GENERAL: Patient sitting up in chair. Appears comfortable. SKIN: Warm and dry. HEAD: Normocephalic. EYES: No scleral icterus. No injection or drainage. NECK: Supple, trachea midline. No JVD. CARDIOVASCULAR: Regular rate and rhythm without murmurs, gallops, or rubs. RESPIRATORY: Breath sounds equal bilaterally. No accessory muscle use. GASTROINTESTINAL: Abdomen soft, non-tender, nondistended. MUSCULOSKELETAL: No cyanosis, or edema. BACK: Nontender without obvious deformity. No CVA tenderness. Assessment and Plan - Assessment (1) Hypertension Code(s): I10 - Essential (primary) hypertension Status: Acute (2) Transient cerebral ischemia Code(s): G45.9 - Transient cerebral ischemic attack, unspecified Status: Acute Qualifiers: Transient cerebral ischemia type: unspecified Qualified Code(s): G45.9 - Transient cerebral ischemic attack, unspecified (3) Acute hyperkalemia Code(s): E87.5 - Hyperkalemia Status: Acute (4) Chronic kidney disease with end stage renal failure on dialysis Code(s): N18.6 - End stage renal disease; Z99.2 - Dependence on renal dialysis Status: Acute (5) Seizure Code(s): R56.9 - Unspecified convulsions Status: Acute - Plan Patient with end stage renal disease on HD and history of Hypertension. Now admitted with neurological symptoms and seizure. Neurology following, On Phenytoin, no more seizure. BP is occ.on higher side, on Hydralazine and Losartan increased, will follow. HD will be done today.
[2018-03-28] MEDS: Metoclopramide 10 MG Tablet PO SCH ×2 (07:27→07:53)
[2018-03-28] MEDS: Aspirin 325 MG Tablet PO SCH ×2 (07:50→10:01)
[2018-03-28] MEDS: Naproxen 500 MG Tablet PO SCH ×2 (07:51→10:04)
[2018-03-28] MEDS: levETIRAcetam 500 MG Tablet PO SCH ×2 (07:52→10:04)
[2018-03-28] MEDS: Sertraline 100 MG Tablet PO SCH ×2 (07:52→10:04)
[2018-03-28] MEDS: hydrALAZINE 50 MG Tablet PO SCH ×2 (07:52→09:57)
[2018-03-28] MEDS: Phenytoin Sodium 100 MG Capsule PO SCH ×2 (07:52→10:01)
[2018-03-28] MEDS: Minoxidil 10 MG Tablet PO SCH (07:59)
[2018-03-28] MEDS: Insulin NovoLOG Aspart Correctional Sugar Inj SQ SCH (08:02)
[2018-03-28 08:51] VITALS: RESP 16; TEMP 97.6
[2018-03-28 08:56] VITALS: PULSE 79
[2018-03-28 09:00] VITALS: O2SAT 98
--- NOTE | 2018-03-28 11:35 | P.PNIM ---
Subjective Interval history: Patient says he is feeling well. Says he is back to normal. Denies any chest pain or shortness of breath. He is eager to go home. Physical Exam Vital signs: Vital Signs 03/27/18 12:00 03/27/18 12:54 03/27/18 16:00 Temperature 97.5 F L Pulse Rate 69 72 65 Respiratory Rate 23 Blood Pressure 164/88 H Pulse Oximetry 03/27/18 17:06 03/27/18 19:00 03/27/18 19:30 Temperature 97.7 F Pulse Rate 78 70 68 Respiratory Rate 19 16 20 Blood Pressure 212/78 H 120/65 115/50 L Pulse Oximetry 93 L 03/27/18 19:45 03/27/18 20:00 03/27/18 20:15 Temperature 98.1 F Pulse Rate 68 68 70 Respiratory Rate 16 14 25 H Blood Pressure 139/64 136/52 L 124/51 L Pulse Oximetry 97 93 L 94 L 03/27/18 21:00 03/28/18 00:00 03/28/18 00:05 Temperature Pulse Rate 74 78 74 Respiratory Rate 26 H 26 H 24 Blood Pressure 131/51 L 175/91 H 160/70 H Pulse Oximetry 98 03/28/18 02:00 03/28/18 04:00 03/28/18 08:00 Temperature 98.6 F 97.6 F Pulse Rate 76 79 Respiratory Rate 12 16 Blood Pressure 157/71 H 153/78 H 198/82 H Pulse Oximetry 98 Intake & Output 03/27/18 03/28/18 03/28/18 18:59 06:59 18:59 Intake Total 320 / 320 Output Total 0 / 0 4000 / 4000 Balance 0 / 0 -3680 / -3680 Weight 100.1 kg Intake: Oral 320 / 320 Output: Urine 0 / 0 0 / 0 Hemodialysis Amount 4000 / 4000 Other: Date of Last Bowel Movement 03/27/18 03/27/18 # Bowel Movements 0 Narrative: GENERAL: Patient sitting up in chair. Appears comfortable. Alert and oriented x4. No change on exam from yesterday. SKIN: Warm and dry. HEAD: Normocephalic. EYES: No scleral icterus. No injection or drainage. NECK: Supple, trachea midline. No JVD. CARDIOVASCULAR: Regular rate and rhythm without murmurs, gallops, or rubs. RESPIRATORY: Breath sounds equal bilaterally. No accessory muscle use. GASTROINTESTINAL: Abdomen soft, non-tender, nondistended. MUSCULOSKELETAL: No cyanosis, or edema. BACK: Nontender without obvious deformity. No CVA tenderness. Results - Labs CBC & Chem 7: 03/26/18 07:50 03/26/18 07:50 Laboratory Results - last 24 hr 03/27/18 03/27/18 03/27/18 12:32 13:30 20:54 POC Glucose 115 H 88 Phenytoin 3.9 L 03/28/18 08:01 POC Glucose 80 Phenytoin Assessment and Plan - Assessment (1) Transient cerebral ischemia Code(s): G45.9 - Transient cerebral ischemic attack, unspecified Status: Acute (2) Seizure Code(s): R56.9 - Unspecified convulsions Status: Acute - Plan This is a 52-year-old male with history of hypertension, end-stage renal disease on hemodialysis presenting with slurring of speech, right facial droop and myoclonic jerks per //TIA versus CVA-symptoms are resolving, speech is fluent, mild tongue deviation to the left, no facial droop, no focal weakness. CT scan of the brain unremarkable. MRI of the brain did not show any infarction, small old lacunar infarcts, carotid Doppler suggestive of left ICA stenosis about 50-69%, no stenosis of the right ICA. Head MRA negative. Echocardiogram, hemoglobin A1c and lipid panel pending. Continue aspirin. Will control blood pressure now. Continue telemetry and holter monitor, Per neurology, he can get further evaluation with vascular surgery as outpatient for his left carotid artery. = Follow-up neurology recommendations. MRA unremarkable. Follow blood pressures. Appreciate PT assistance. Rehab recommended. //Myoclonic jerks secondary to generalized seizure- EEG ordered, showed generalized spike and wave activity seen episodically consistent with probable generalized seizure but no evidence of status. Neurology following. Switch Dilantin to oral, follow-up Dilantin levels tomorrow level is 6.9 today. = 03/27. Phenytoin low at 3.9. Defer to neurology. = Continue Keppra. Follow-up with neurology as outpatient. //End-stage renal disease on hemodialysis-nephrology following, continue hemodialysis Sunday and Sunday, received hemodialysis 03/25. //Hyperkalemia-EG within normal limits with potassium of 6.3, status post Kayexalate, D50 insulin, calcium gluconate. Status post dialysis, potassium is now 4.8. //Diabetes mellitus-continue home dose of Levemir 20 units at night, sliding scale insulin, Accu-Cheks //Hypertension-continue losartan, minoxidil, start hydralazine 50 mg 3 times a day, metoprolol as needed. = 03/28. Blood pressure appears to have been elevated this morning, however on manual recheck systolics in the 160s. Discharge home on current regimen. //Troponin elevation-likely secondary to end-stage renal disease. Patient does not have any chest pain, troponin remained flat. //DVT prophylaxis: SCDs Discharge Planning: = Discharge home with home health. = Follow-up with neurology as outpatient. -we will need nephrology follow-up for dialysis. (1) Transient cerebral ischemia Qualifiers: Transient cerebral ischemia type: unspecified Qualified Code(s): G45.9 - Transient cerebral ischemic attack, unspecified
--- NOTE | 2018-03-28 11:36 | P.DS ---
Date of admission: 03/25/18 12:39 Primary care physician: Hardik Bazan Mai, m.d., MD Brief History from admission: This is a 52-year-old male with history of end-stage renal disease and he diabetes mellitus, hypertension presenting to the hospital around 10 AM for slurring of speech and right-sided facial droop. Upon ED evaluation, stroke alert was called, neurology saw the patient via telemedicine. Slurring of speech is still present but a little bit better, there is also left tongue deviation. tPA was not given. Presently, patient is feeling better, per patient's mother, his speech is probably back to normal or close if not normal. He has a baseline left-sided facial droop from a previous neck surgery. Patient denies any chest pain or shortness of breath. He has generalized weakness but no change or worsening. Is no history of stroke or kidney problems in the family. There is prominent cardiac history in the family. Patient is non-smoker DS: Diagnosis - Discharge Diagnosis (1) Transient cerebral ischemia Status: Acute (2) Seizure Status: Acute DS: Medications - Discharge Medications Prescriptions: aspirin 325 mg PO DAILY 30 Days #30 tab hydralazine 50 mg PO TID 30 Days #90 tab levetiracetam [Keppra] 500 mg PO BID 30 Days #60 tab losartan 100 mg PO DAILY 30 Days #30 tab minoxidil 10 mg PO BID 30 Days #60 tab phenytoin sodium extended 100 mg PO TID 30 Days #90 cap phenytoin sodium extended [Dilantin] 30 mg PO TID 30 Days #90 cap pravastatin 40 mg PO HS 30 Days #30 tab DS: Summary Hospital Course: This is a 52-year-old male with history of hypertension, end-stage renal disease on hemodialysis presenting with slurring of speech, right facial droop and myoclonic jerks per //TIA versus CVA-symptoms are resolving, speech is fluent, mild tongue deviation to the left, no facial droop, no focal weakness. CT scan of the brain unremarkable. MRI of the brain did not show any infarction, small old lacunar infarcts, carotid Doppler suggestive of left ICA stenosis about 50-69%, no stenosis of the right ICA. Head MRA negative. Echocardiogram, hemoglobin A1c and lipid panel pending. Continue aspirin. Will control blood pressure now. Continue telemetry and holter monitor, Per neurology, he can get further evaluation with vascular surgery as outpatient for his left carotid artery. = Follow-up neurology recommendations. MRA unremarkable. Follow blood pressures. Appreciate PT assistance. Rehab recommended. //Myoclonic jerks secondary to generalized seizure- EEG ordered, showed generalized spike and wave activity seen episodically consistent with probable generalized seizure but no evidence of status. Neurology following. Switch Dilantin to oral, follow-up Dilantin levels tomorrow level is 6.9 today. = 03/27. Phenytoin low at 3.9. Defer to neurology. = Continue Keppra. Follow-up with neurology as outpatient. //End-stage renal disease on hemodialysis-nephrology following, continue hemodialysis Sunday and Sunday, received hemodialysis 03/25. //Hyperkalemia-EG within normal limits with potassium of 6.3, status post Kayexalate, D50 insulin, calcium gluconate. Status post dialysis, potassium is now 4.8. //Diabetes mellitus-continue home dose of Levemir 20 units at night, sliding scale insulin, Accu-Cheks //Hypertension-continue losartan, minoxidil, start hydralazine 50 mg 3 times a day, metoprolol as needed. = 03/28. Blood pressure appears to have been elevated this morning, however on manual recheck systolics in the 160s. Discharge home on current regimen. //Troponin elevation-likely secondary to end-stage renal disease. Patient does not have any chest pain, troponin remained flat. //DVT prophylaxis: SCDs Discharge Planning: = Discharge home with home health. = Follow-up with neurology as outpatient. -we will need nephrology follow-up for dialysis. - Time Spent with Patient Total time spent providing and/or coordinating discharge services: Greater than 30 minutes - Quality: Stroke Last date observed well: 03/25/18 Last time observed well: 09:45 - Quality: VTE Deep Vein Thrombosis/Pulmonary Embolism Present on Admission: No Exam Vital signs: Vital Signs 03/27/18 12:00 03/27/18 12:54 03/27/18 16:00 Temperature 97.5 F L Pulse Rate 69 72 65 Respiratory Rate 23 Blood Pressure 164/88 H Pulse Oximetry 03/27/18 17:06 03/27/18 19:00 03/27/18 19:30 Temperature 97.7 F Pulse Rate 78 70 68 Respiratory Rate 19 16 20 Blood Pressure 212/78 H 120/65 115/50 L Pulse Oximetry 93 L 03/27/18 19:45 03/27/18 20:00 03/27/18 20:15 Temperature 98.1 F Pulse Rate 68 68 70 Respiratory Rate 16 14 25 H Blood Pressure 139/64 136/52 L 124/51 L Pulse Oximetry 97 93 L 94 L 03/27/18 21:00 03/28/18 00:00 03/28/18 00:05 Temperature Pulse Rate 74 78 74 Respiratory Rate 26 H 26 H 24 Blood Pressure 131/51 L 175/91 H 160/70 H Pulse Oximetry 98 03/28/18 02:00 03/28/18 04:00 03/28/18 08:00 Temperature 98.6 F 97.6 F Pulse Rate 76 79 Respiratory Rate 12 16 Blood Pressure 157/71 H 153/78 H 198/82 H Pulse Oximetry 98 Intake & Output 03/27/18 03/28/18 03/28/18 18:59 06:59 18:59 Intake Total 320 / 320 Output Total 0 / 0 4000 / 4000 Balance 0 / 0 -3680 / -3680 Weight 100.1 kg Intake: Oral 320 / 320 Output: Urine 0 / 0 0 / 0 Hemodialysis Amount 4000 / 4000 Other: Date of Last Bowel Movement 03/27/18 03/27/18 # Bowel Movements 0 Results Procedures completed during hospitalization: Dialysis performed by nephrology. No invasive procedures. Labs on day of discharge: Labs from last 24 hours 03/28/18 03/27/18 03/27/18 08:01 20:54 13:30 POC Glucose 80 88 Phenytoin 3.9 L 03/27/18 12:32 POC Glucose 115 H Phenytoin - Impressions ITS Impressions Chest X-Ray 03/25/18 10:51 CONCLUSION: No acute pulmonary infiltrates. Head CT 03/25/18 10:51 CONCLUSION: 1. No acute intracranial hemorrhage. 2. Bilateral small old appearing lacunar infarcts in the basal ganglia regions. Report was called by [Dr. Rosenbaum to Dr. Vanegas at 11:01 AM. ] Carotid Doppler Study 03/25/18 11:12 CONCLUSION: 1. Elevation of the peak systolic velocity of the left ICA suggesting 50-69% stenosis although the ICA/CCA ratio is suggestive of less than 50% stenosis. CTA of the carotids may be helpful for further evaluation of these discordant findings. 2. No significant stenosis involving the right internal carotid artery. Head MRI 03/25/18 11:12 CONCLUSION: 1. No acute cerebral infarction. 2. Bilateral old small lacunar infarcts. 3. Chronic left mastoiditis. Head MRA 03/25/18 11:12 CONCLUSION: 1. Negative MRA [place] ([place]) non contrast. Neck MRA 03/27/18 12:36 CONCLUSION: 1. Unremarkable MRA of the carotid arteries. _ Percent stenosis is calculated using the diameter of the stenotic region over the diameter of the normal distal internal carotid artery _ Discharge Plan - Discharge Disposition Patient Disposition: /Home Health Service - Discharge Condition Condition: Good - Discharge Order Discharge Orders: Discharge Order (Routine); Ordered 03/28/18 Ordered By: Uri Griffith - Discharge Details Anticipated Discharge Date: 03/28/18 Discharge Comment: please call to notify [facility] [place] - Physicians Team Primary Care Provider: lamberto Fisher Christophe C Attending Provider: Uri Griffith Other Providers: Emerson Salas MD, PhD ; Miguel Fung MD
[2018-03-28 11:47] VITALS: BP 162/92
== END 2018-03-28 12:30 | disposition home health service (06) | DRG 69 ==
LOC: PHED 10:45 → PHEDA 12:39 → PH3 14:08 → PHICU 03-26 09:42
PROVIDERS: ADMIT Internal Medicine; ATTEND Internal Medicine
DX: R56.9 Unspecified convulsions; F32.9 Major depressive disorder, single episode, unspecified; R29.810 Facial weakness; R47.1 Dysarthria and anarthria; E11.22 Type 2 diabetes mellitus with diabetic chronic kidney disease; Z91.041 Radiographic dye allergy status; Z79.4 Long term (current) use of insulin; G45.9 Transient cerebral ischemic attack, unspecified; I67.4 Hypertensive encephalopathy; I12.0 Hypertensive chronic kidney disease with stage 5 chronic kidney disease or end stage renal disease; I65.22 Occlusion and stenosis of left carotid artery; E87.5 Hyperkalemia; N18.6 End stage renal disease; Z85.820 Personal history of malignant melanoma of skin; Z86.73 Personal history of transient ischemic attack (TIA), and cerebral infarction without residual deficits; G82.20 Paraplegia, unspecified; Z99.2 Dependence on renal dialysis; R29.704 NIHSS score 4
CPT/HCPCS: 70450; 70544; 70547; 70551; 71010; 71045; 80048; 80061; 80185; 82550; 82552; 82948; 82962; 83036; 84100; 84484; 85025; 85610; 85730; 86850; 86900; 86901; 90774; 90935; 93005; 93225; 93306; 93880; 95819; 96374; 97110; 97116; 97163; 97167; 97535; 99291; C8952; J0610; J1815; J2060; J2405; J7030; Q2009